=== PATIENT | male | born 1945 | race Caucasian/White ===

== ENCOUNTER 2016-11-01 02:56 | Inpatient (IN) | payer OTHER ==
--- NOTE | 2016-11-01 03:07 | PDOC ---
History of Present Illness - General Stated Complaint: FEVER/PALPITATIONS Time Seen by Provider: 11/01/16 02:59 History Source: Patient, Family Exam Limitations: No Limitations - History of Present Illness Initial Comments: 11/01/16 03:46 Patient is a 71 year old male with history significant for pancreatic cancer on chemotherapy s/p biliary stent placement 4 days ago BIBA in SVT with an elevated temperature. Patient has been complaining of worsening right sided abdominal pain since his stent placement and at 2 this morning was found by his in the bathroom, weak and minimally responsive. Patient's endorses a fever of 103. Patient endorses fever, chills, abdominal pain and weakness; denies chest pain, SOB, nausea and vomiting. Last chemo was three weeks ago. Patient reports no prior history of heart problems. Patient received 6mg + 12mg adenosine by EMS. PCP: Cristy Oncologist: Dr. Etienne ([facility]) Surgeon: Dr. Jacinto Whelan ([facility]) Past History - Past Medical History Allergies/Adverse Reactions: Allergies Allergy/AdvReac Type Severity Reaction Status Date / Time No Known Allergies Allergy Verified 11/01/16 03:06 Home Medications: Ambulatory Orders Atorvastatin Ca [Lipitor] 20 mg PO HS 02/25/15 Lisinopril 20 mg PO BID 02/25/15 Docusate Sodium [Colace -] 100 mg PO DAILY 11/01/16 Mv-Mn/Iron/FA/Herbal Cmplx#190 [Vitamin D3 Complete Caplet] 1 each PO DAILY Rivaroxaban [Xarelto -] 20 mg PO HS 11/01/16 Sennosides [Senna] 8.6 mg PO DAILY 11/01/16 Tamsulosin HCl [Flomax] 0.4 mg PO HS 11/01/16 Atorvastatin Ca [Lipitor] 20 mg PO HS tablet 11/07/16 Rivaroxaban [Xarelto -] 20 mg PO HS tablet 11/07/16 HTN: Yes Hypercholesterolemia: Yes - Suicide/Smoking/Psychosocial Hx Smoking History: Former smoker Have you smoked in the past 12 months: No If you are a former smoker, when did you quit?: 5 YRS Hx Alcohol Use: No Drug/Substance Use Hx: No Substance Use Type: None Review of Systems - Review of Systems Able to Perform ROS?: Yes Comments:: GEN: Endorses fever, chills, malaise, weakness; Denies recent illness HEENTM: Denies sore throat, neck pain, changes in vision, changes in hearing, ear pain, tinnitus Respiratory: Denies cough, wheezing, shortness of breath Cardiac: Endorses a "racing heart", diaphoresis; Denies chest pain, palpitations , lightheadedness ABD/GI: Endorses RUQ abdominal pain, constipation; Denies nausea, vomiting, diarrhea : Denies dysuria, burning on urination, increased frequency of urination Musculoskeletal: Denies pain and swelling of muscles and joints Integumentary: Denies rashes, bruises Neurological: Denies WEEKS, dizziness, loss of consciousness, tingling, numbness Hematologic/Lymphatic: Denies anemia, easy bleeding, history of blood clots. All Other Systems Reviewed and Negative Is the patient limited Jordanian proficient: No *Physical Exam - Physical Exam Comments: GENERAL: AAOx4, nourished, generally slow and weak appearing HEAD: NCAT EYES: PERRLA, EOMI, sclera anicteric, conjunctiva clear ENT: Auricles normal inspection, hearing grossly normal, nares patent, no nasal discharge, no congestion, oropharynx clear without exudates, MMM NECK: supple, normal ROM, no LAD, no JVD, no masses RESP: speaking in weak partial sentences, poor respiratory effort, lungs CTAB, symmetrical chest expansion, no respiratory distress HEART: Tachycardic, RR, normal S1-S2, no MRG, peripheral pulses normal and equal bilaterally ABDOMEN: soft, ttp RUQ/RLQ/epigastric, nlBSx4, non-distended, no guarding, no rebound, no masses EXTREMITIES: normal inspection, moving all extremities, full ROM, strength 4/5, sensation grossly intact, no edema NEUROLOGICAL: CN II-XII grossly intact, slowed speech/response, unable to assess gait, no focal sensorimotor deficits SKIN: warm, moist, normal turgor, no rashes or lesions noted. ED Treatment Course - LABORATORY CBC & Chemistry Diagram: 11/06/16 06:30 11/06/16 06:30 Medical Decision Making - Medical Decision Making 71yo male with pancreatic cancer on chemotherapy and post stenting 4 days ago presenting with abdominal pain, svt, fever and general weakness. Ddx includes but is not limited to progression of cancer, surgical complications , infection, paroxysmal svt, acs Patient had T of 100.1 and HR of 135 in ED Evalute with standard bloodwork, lipase, cardiac enzymes, CXR, UA Admit for further workup 11/01/16 04:17 CBC WBC 4.8 K/mm3 (4.0-10.0) D 11/01/16 03:36 RBC 4.76 M/mm3 (4.00-5.60) D 11/01/16 03:36 Hgb 14.2 GM/dL (11.7-16.9) D 11/01/16 03:36 Hct 42.3 % (35.4-49) D 11/01/16 03:36 MCV 88.7 fl (80-96) 11/01/16 03:36 MCH 29.7 pg (25.7-33.7) D 11/01/16 03:36 MCHC 33.5 g/dl (32.0-35.9) 11/01/16 03:36 RDW 15.5 % (11.9-15.9) D 11/01/16 03:36 Plt Count 194 K/MM3 (134-434) D 11/01/16 03:36 MPV 8.4 fl (7.5-11.1) 11/01/16 03:36 Neutrophils % 94.2 % (42.8-82.8) H D 11/01/16 03:36 Lymphocytes % 4.6 % (8-40) L D 11/01/16 03:36 Monocytes % 0.7 % (3.8-10.2) L D 11/01/16 03:36 Eosinophils % 0.4 % (0-4.5) D 11/01/16 03:36 Basophils % 0.1 % (0-2.0) 11/01/16 03:36 No leukocytosis in setting of chemo cannot rule out infection Blood glucose 329 Lactic acid 2.5 11/01/16 04:28 Laboratory Tests 11/01/16 03:36 PT with INR 29.40 H INR 2.62 H D PTT (Actin FS) 37.3 H Elevated CMP Sodium 131 mmol/L (136-145) L 11/01/16 03:36 Potassium 3.4 mmol/L (3.5-5.1) L 11/01/16 03:36 Chloride 92 mmol/L (98-107) L D 11/01/16 03:36 Carbon Dioxide 24 mmol/L (21-32) 11/01/16 03:36 Anion Gap 15 (8-16) 11/01/16 03:36 BUN 16 mg/dL (7-18) 11/01/16 03:36 Creatinine 1.1 mg/dL (0.7-1.3) D 11/01/16 03:36 Creat Clearance w eGFR > 60 (>60) 11/01/16 03:36 Random Glucose 359 mg/dL (74-106) H* D 11/01/16 03:36 Lactic Acid 2.5 mmol/L (0.4-2.0) H* 11/01/16 03:36 Calcium 8.6 mg/dL (8.5-10.1) 11/01/16 03:36 Magnesium 1.6 mg/dL (1.8-2.4) L 11/01/16 03:36 Total Bilirubin 3.4 mg/dL (0.2-1.0) H D 11/01/16 03:36 AST 77 U/L (15-37) H D 11/01/16 03:36 ALT 106 U/L (12-78) H D 11/01/16 03:36 Alkaline Phosphatase 380 U/L (45-117) H D 11/01/16 03:36 Creatine Kinase 55 IU/L (39-308) 11/01/16 03:36 Troponin I < 0.02 ng/ml (0.00-0.05) 11/01/16 03:36 Total Protein 6.6 g/dl (6.4-8.2) 11/01/16 03:36 Albumin 3.2 g/dl (3.4-5.0) L 11/01/16 03:36 Lipase 873 U/L (73-393) H 11/01/16 03:36 Troponin I reassuring for cardiac pathology Low K, Mg Elevated Lipase and LFTs Elevated Alk Phos 11/01/16 04:38 Urine Test Results Urine Color Yellow 11/01/16 03:36 Urine Appearance Clear 11/01/16 03:36 Urine pH 6.0 (5.0-8.0) 11/01/16 03:36 Urine Protein Negative (NEGATIVE) 11/01/16 03:36 Urine Glucose (UA) 3+ (NEGATIVE) H 11/01/16 03:36 Urine Ketones Trace (NEGATIVE) H 11/01/16 03:36 Urine Blood 1+ (NEGATIVE) H 11/01/16 03:36 Urine Nitrite Negative (NEGATIVE) 11/01/16 03:36 Urine Bilirubin Negative (NEGATIVE) 11/01/16 03:36 negative for UTI 11/01/16 05:[address] Power who agreed to have patient admitted under his service *DC/Admit/Observation/Transfer Diagnosis at time of Disposition: Sepsis Qualifiers: Sepsis type: Escherichia coli Qualified Code(s): A41.51 - Sepsis due to Escherichia coli [E. coli] - Discharge Dispostion Disposition: HOME Admit: Yes - Referrals
[2016-11-01] MEDS ORDERED: SODIUM CHLORIDE 1,000 ML IV STA ×3 (03:35→07:36)
[2016-11-01 03:45] LABS: BASOPHIL 0.1 % (0-2.0); EOSINOPHIL 0.4 % (0-4.5); MCH 29.7 pg (25.7-33.7); MCHC 33.5 g/dl (32.0-35.9); MEAN CELL VOLUME 88.7 fl (80-96); MEAN PLT VOLUME 8.4 fl (7.5-11.1); NEUTROPHILS 94.2 % (42.8-82.8); PLATELET COUNT 194 K/MM3 (134-434); RDW 15.5 % (11.9-15.9); WHITE BLOOD COUNT 4.8 K/mm3 (4.0-10.0)
[2016-11-01 03:51] LABS: URINE APPEARANCE CLEAR; URINE BILIRUBIN NEGATIVE (NEGATIVE); URINE BLOOD 1+ (NEGATIVE); URINE COLOR YELLOW; URINE GLUCOSE (UA) 3+ (NEGATIVE); URINE KETONE TRACE (NEGATIVE); URINE LEUK ESTERASE NEGATIVE (NEGATIVE); URINE NITRITE NEGATIVE (NEGATIVE); URINE PROTEIN NEGATIVE (NEGATIVE); URINE UROBILINOGEN NEGATIVE mg/dL (0.2-1.0)
[2016-11-01] MEDS ORDERED: ACETAMINOPHEN 1000 MG/100 ML VIAL (NON FORMULARY) IVPB ONE (03:54)
[2016-11-01] MEDS ORDERED: ACETAMINOPHEN INJECTION 100 ML IVPB ONE (03:54)
[2016-11-01 03:59] LABS: INR 2.62 (0.82-1.09); PROTHROMBIN TIME (PATIENT) 29.4 SEC (9.98-11.88)
[2016-11-01 04:01] LABS: ACTIVATED PTT 37.3 SECONDS (26.9-34.4)
[2016-11-01] MEDS ORDERED: PIPERACILLIN/TAZOB 3.375 GM 3.375 GM in DEXTROSE 5%-WATER - 50 ML IVPB ONE (04:01)
[2016-11-01] MEDS ORDERED: VANCOMYCIN 1,000 MG in DEXTROSE 5%-WATER - 250 ML IVPB ONE (04:02)
[2016-11-01 04:09] LABS: ALBUMIN 3.2 g/dl (3.4-5.0); ALK PHOS 380 U/L (45-117); ANION GAP 15 (8-16); BILIRUBIN,TOTAL 3.4 mg/dL (0.2-1.0); CALCIUM 8.6 mg/dL (8.5-10.1); CO2 24 mmol/L (21-32); CREATININE 1.1 mg/dL (0.7-1.3); SGOT/AST 77 U/L (15-37); SGPT/ALT 106 U/L (12-78); TOT PROT 6.6 g/dl (6.4-8.2)
[2016-11-01 04:16] LABS: GLUCOSE,RANDOM 359 mg/dL (74-106)
[2016-11-01 04:22] LABS: CPK 55 IU/L (39-308); TROPONIN I < 0.02 ng/ml (0.00-0.05)
[2016-11-01] MEDS ORDERED: VANCOMYCIN 1 GRAM (PRE-DOCKED) 250 ML IVPB ONE (04:23)
[2016-11-01] MEDS ORDERED: PIPERACILLIN/TAZOB 3.375 GM 50 ML IVPB ONE (04:23)
[2016-11-01] MEDS ORDERED: MAGNESIUM SULF 50% (8.12 MEQ/2 ML-1 GM VIAL) ONE (04:37)
[2016-11-01 04:41] LABS: URINE MUCUS RARE; URINE RBC 1 /hpf (0-3); URINE WBC <1 /hpf (3-5)
[2016-11-01] MEDS ORDERED: MAGNESIUM SULF 50% (8.12 MEQ/2 ML-1 GM VIAL) IVPB ONE (04:43)
[2016-11-01] MEDS ORDERED: morphine CARPU-JECT 4 MG/1 ML DISP.SYRIN IVPUSH ONE (05:29)
[2016-11-01] MEDS ORDERED: morphine CARPU-JECT 4 MG/1 ML DISP.SYRIN ONE (05:33)
[2016-11-01 09:45] VITALS: BMI 28.2
[2016-11-01] MEDS ORDERED: VANCOMYCIN 1,000 MG in DEXTROSE 5%-WATER - 250 ML IVPB SCH (10:00)
[2016-11-01] MEDS ORDERED: FLU VACCINE QUAD 60 MCG/0.5 ML (MDV 17-18) IM ONE (11:00)
[2016-11-01] MEDS ORDERED: SODIUM CHLORIDE 500 ML IV STA (12:31)
--- NOTE | 2016-11-01 12:31 | CONSULT ---
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 Patient's medical oncologist is Dr. Etienne at [facility]. He was diagnosed with biopsy confirmed pancreatic Ca in early 2015. He was not a candidate for pancreaticoduodenectomy ([facility]) due to locally advanced disease. Gastric bypass with cholecystectomy was performed instead, and he as been receiving adjuvant chemotherapy [id number] since April 2015. His current regiment is 5-FU and leucovorin, but his oncologist is considering to change his treatment due to recent worsening of his LFTs. On 10/28, Dr. Jacinto Khoury at [facility] ([facility] location) performed ERCP that revealed biliary obstruction 2/2 to mass with sphincterotomy and bare metal biliary wall stent placement. He was discharged home on Sunday 10/29. Post-procedural T bilirubin was 2.8. Since discharge, Mr. Castelan has had progressively worsening right-sided abdominal pain over the weekend. Yesterday, his reports that he was lethargic and found to have a fever of around 103F. He denies any chest pain, chest pressure, or SOB. No nausea or vomiting. No recent sick contacts. - History Source History Provided By: Patient, Medical Record Limitations to Obtaining History: No Limitations - Past Medical History Cardio/Vascular: Yes: HTN, Hyperlipdemia Gastrointestinal: Yes: Hemorrhoids Renal/: Yes: Cancer Heme/Onc: Yes: Current Chemotherapy - Past Surgical History Past Surgical History: Yes: Bypass, Cholecystectomy, Colonoscopy - Alcohol/Substance Use Hx Alcohol Use: No History of Substance Use: reports: None - Smoking History Smoking history: Former smoker Have you smoked in the past 12 months: No If you are a former smoker, when did you quit?: 5 YRS - Social History Usual Living Arrangement: With Spouse ADL: Independent History of Recent Travel: No Home Medications - Allergies Allergies/Adverse Reactions: Allergies Allergy/AdvReac Type Severity Reaction Status Date / Time No Known Allergies Allergy Verified 11/01/16 03:06 - Home Medications Home Medications: Ambulatory Orders Atorvastatin Ca [Lipitor] 20 mg PO HS 02/25/15 Lisinopril 20 mg PO BID 02/25/15 Docusate Sodium [Colace -] 100 mg PO DAILY 11/01/16 Mv-Mn/Iron/FA/Herbal Cmplx#190 [Vitamin D3 Complete Caplet] 1 each PO DAILY Rivaroxaban [Xarelto -] 20 mg PO HS 11/01/16 Sennosides [Senna] 8.6 mg PO DAILY 11/01/16 Tamsulosin HCl [Flomax] 0.4 mg PO HS 11/01/16 Family Disease History - Family Disease History Family Disease History: Other: Father (prostate carcinoma at 74) Physical Exam Vital Signs: Vital Signs Temperature 98.7 F 11/01/16 10:28 Pulse Rate 99 H 11/01/16 10:28 Respiratory Rate 22 11/01/16 10:28 Blood Pressure 119/61 11/01/16 11:58 O2 Sat by Pulse Oximetry (%) 100 11/01/16 09:00 Constitutional: Yes: Well Nourished, Calm Eyes: Yes: Conjunctiva Clear (anicteric sclera) HENT: Yes: WNL (oropharynx clear without exudates or erythema, moist mucous membranes) Cardiovascular: Yes: Tachycardia (regular rhythm, normal S1/S2) Respiratory: Yes: Diminished Gastrointestinal: Yes: Soft, Tenderness (RUQ>RLQ), Other (No distention, well healed midline vertical scar above umbilicus) Extremities: Yes: WNL Edema: No Edema: LLE: Trace, RLE: Trace Peripheral Pulses WNL: Yes Labs: 11/01/16 03:36 11/01/16 18:00 11/01/16 11/01/16 03:36 03:36 PT with INR 29.40 H INR 2.62 H D PTT (Actin FS) 37.3 H Sodium 131 L Potassium 3.4 L Chloride 92 L D Carbon Dioxide 24 Anion Gap 15 BUN 16 Creatinine 1.1 D Lactic Acid Calcium 8.6 Magnesium Total Bilirubin 3.4 H D AST 77 H D ALT 106 H D Alkaline Phosphatase 380 H D Total Protein 6.6 Albumin 3.2 L Creatine Kinase 55 IU/L (39-308) 11/01/16 03:36 Troponin I < 0.02 ng/ml (0.00-0.05) 11/01/16 03:36 11/01/16 11/01/16 11/01/16 11/01/16 11/01/16 03:36 03:36 03:36 05:30 13:15 Lactic Acid 2.5 H* 4.1 H* 1.5 Calcium 8.6 Magnesium 1.6 L Lipase 873 H Urine Color Yellow 11/01/16 03:36 Urine Appearance Clear 11/01/16 03:36 Urine pH 6.0 (5.0-8.0) 11/01/16 03:36 Ur Specific [place] 1.015 (1.005-1.025) 11/01/16 03:36 Urine Protein Negative (NEGATIVE) 11/01/16 03:36 Urine Glucose (UA) 3+ (NEGATIVE) H 11/01/16 03:36 Urine Ketones Trace (NEGATIVE) H 11/01/16 03:36 Urine Blood 1+ (NEGATIVE) H 11/01/16 03:36 Urine Nitrite Negative (NEGATIVE) 11/01/16 03:36 Urine Bilirubin Negative (NEGATIVE) 11/01/16 03:36 Urine RBC 1 /hpf (0-3) 11/01/16 03:36 Urine WBC <1 /hpf (3-5) 11/01/16 03:36 Urine Mucus Rare 11/01/16 03:36 Microbiology 11/01/16 03:36 Blood - Peripheral Venous Blood Culture - Preliminary Pending Organism --> GN bacilli 11/01/16 03:36 Blood - Peripheral Venous Blood Culture - Preliminary Pending Organism --> GN bacilli Urine cultures pending Imaging - Results Chest X-ray: Report Reviewed, Image Reviewed (Since 02/25/2015, there are new increased markings at the left base suspicious for an early infiltrate. There is a new right jugular line with its tip at the junction the SVC and right atrium. There is a prominent mediastinum. There is some minimal atelectatic change at the left base. The right lung is clear. Correlation recommended. Impression: New left base changes and new right line. Reported By: Yoseph Donovan MD 11/01/16 0834) Cat Scan: Report Reviewed, Image Reviewed (Abd/pelvis CT w/o contrast: The study is markedly limited without the use of any contrast material. Atelectatic changes are seen at both lung bases, left greater than right. There is a biliary Wallstent in place which is widely patent, as evidenced by air throughout the biliary tree. There are multiple surgical clips identified in the region of the pancreatic head which has a bulky appearance. A discrete mass cannot be identified, however. Mildly enlarged peripancreatic lymph nodes are present. There are also moderately enlarged retroperitoneal nodes, predominantly within the left para-aortic chain. The largest of these nodes measures 2.7 cm. The liver is normal in size and texture with no intrahepatic masses present. The spleen, adrenal glands and kidneys demonstrate no significant abnormalities. There is a 4.4 cm cyst extending from the upper pole the right kidney. There is a tubular structure within the body of the stomach. This has the appearance of a catheter , however, its origin is unclear. Clinical correlation is advised. There is no evidence of pneumoperitoneum, bowel obstruction or intra-abdominal abscess. There is an IVC filter noted within the infrarenal cava. Examination of the pelvis demonstrates no evidence of pelvic masses, fluid collections or lymphadenopathy. The prostate gland is markedly enlarged measuring 6.5 x 5.3 x 6.2 cm. There is no evidence of bony metastases or acute abnormalities. IMPRESSION: 1. Patent biliary Wallstent with pneumobilia. 2. Bulky appearance of the peripancreatic region with no discrete mass present. There is peripancreatic and left retroperitoneal lymphadenopathy.) Assessment/Plan 71yo man with metastatic pancreatic cancer (on chemotherapy) s/p ERCP/biliary stent placement 4days ago for obstruction who presents with sepsis and GN bacteremia possibly 2/2 PNA versus biliary tract source. Medical oncologist at [facility] Dr. Etienne is aware of his ICU admission. [facility] records obtained from her office and added to pt chart. Contacted Insights Strategist, Dr. Khoury, at [facility] for additional collateral information about recent procedure. Discussed case with Dr. De La Torre. #GI -Dr. De La Torre consulted -HIDA scan tomorrow to assess stent patency -NPO after midnight #ID -ID consulted -Abx per ID (Zosyn and Vanc) -Trend lactic acid -f/u Blood and urine cultures #Pulm -O2 therapy as needed #Renal -Strict I&Os #FEN -Agressive IVF, s/p 3.5L NS, currently NS @ 125cc/hr -Repleted Mg with 2g IVPB, K with 40mEq PO KCl -NPO #PPX -DVT ppx bilateral SCDs, early ambulation #Dispo: Continue ICU management d/w attending Dr. Parmjit Pendleton MD PGY-1 Visit type - Emergency Visit Emergency Visit: No - New Patient This patient is new to me today: Yes Date on this admission: 11/01/16 - Critical Care Critical Care patient: Yes Total Critical Care Time (in minutes): 40 Critical Care Statement: The care of this patient involved high complexity decision making to prevent further life threatening deterioration of the patient 's condition and/or to evaluate & treat vital organ system(s) failure or risk of failure.
[2016-11-01] MEDS ORDERED: NAPH,MB-DB/K PH,MBDB POWDER PACKET PO ONE (12:38)
[2016-11-01] MEDS: PIPERACILLIN/TAZOB 3.375 GM 50 ML IVPB SCH ×2 (13:27→17:45)
--- NOTE | 2016-11-01 13:43 | PN ---
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
--- NOTE | 2016-11-01 14:04 | PN ---
Teaching Attending Note Name of Resident: Cristina Pendleton ATTENDING PHYSICIAN STATEMENT I saw and evaluated the patient. I reviewed the resident's note and discussed the case with the resident. I agree with the resident's findings and plan as documented. SUBJECTIVE: 71 M, known pancreatic cancer managed at [facility]. According to his has been receiving chemotherapy since 03/2015 almost every 2 weeks. Last Chemo was 3 weeks ago today. They were told that he does not seem to be responding to the Chemo by his oncologist. S/P Biliary stent placement on Monday and was discharged on Monday. Progressively worsening right sided abdominal pain. No CP or SOB. No travel history or sick contacts. Intake & Output 10/29/16 10/30/16 10/31/16 11/01/16 23:59 23:59 23:59 23:59 Intake Total 2550 Output Total 400 Balance 2150 Weight 175 lb 0.752 oz Last Vital Signs Temp Pulse Resp BP Pulse Ox 98.7 F 99 H 22 119/61 100 11/01/16 10:28 11/01/16 10:28 11/01/16 10:28 11/01/16 11:58 11/01/16 09:00 Active Medications Piperacillin Sod/Tazobactam Sod (Zosyn 3.375gm Ivpb (Pre-Docked)) 50 mls @ 100 mls/hr IVPB Q8H-IV GALO PRN Reason: Protocol Last Admin: 11/01/16 13:27 Dose: 100 mls/hr Vancomycin HCl (Vancomycin (Pre-Docked)) 250 mls @ 200 mls/hr IVPB BID@0400, 1600 GALO Constitutional: Yes: Awake and alert, Mildly uncomfortable due to pain Eyes: Yes: Conjunctiva Clear HENT: Yes: WNL Neck: Yes: Supple, Trachea Midline Cardiovascular: Yes: Regular Rate and Rhythm Respiratory: Yes: Few scattered rhonchi Gastrointestinal: Yes: Soft Edema: LLE: 1+, RLE: 1+ Neurological: Yes: Alert Psychiatric: Yes: Alert Laboratory Results - last 24 hr 11/01/16 11/01/16 11/01/16 03:36 03:36 03:36 WBC 4.8 D RBC 4.76 D Hgb 14.2 D Hct 42.3 D MCV 88.7 MCH 29.7 D MCHC 33.5 RDW 15.5 D Plt Count 194 D MPV 8.4 Neutrophils % 94.2 H D Lymphocytes % 4.6 L D Monocytes % 0.7 L D Eosinophils % 0.4 D Basophils % 0.1 PT with INR INR PTT (Actin FS) Sodium Potassium Chloride Carbon Dioxide Anion Gap BUN Creatinine Creat Clearance w eGFR Random Glucose Lactic Acid Calcium Magnesium 1.6 L Total Bilirubin AST ALT Alkaline Phosphatase Creatine Kinase Troponin I Total Protein Albumin Lipase Urine Color Yellow Urine Appearance Clear Urine pH 6.0 Ur Specific [place] 1.015 Urine Protein Negative Urine Glucose (UA) 3+ H Urine Ketones Trace H Urine Blood 1+ H Urine Nitrite Negative Urine Bilirubin Negative Urine Urobilinogen Negative Urine RBC 1 Urine WBC <1 Urine Mucus Rare 11/01/16 11/01/16 11/01/16 03:36 03:36 03:36 WBC RBC Hgb Hct MCV MCH MCHC RDW Plt Count MPV Neutrophils % Lymphocytes % Monocytes % Eosinophils % Basophils % PT with INR 29.40 H INR 2.62 H D PTT (Actin FS) 37.3 H Sodium 131 L Potassium 3.4 L Chloride 92 L D Carbon Dioxide 24 Anion Gap 15 BUN 16 Creatinine 1.1 D Creat Clearance w eGFR > 60 Random Glucose 359 H* D Lactic Acid 2.5 H* Calcium 8.6 Magnesium Total Bilirubin 3.4 H D AST 77 H D ALT 106 H D Alkaline Phosphatase 380 H D Creatine Kinase Troponin I Total Protein 6.6 Albumin 3.2 L Lipase Urine Color Urine Appearance Urine pH Ur Specific [place] Urine Protein Urine Glucose (UA) Urine Ketones Urine Blood Urine Nitrite Urine Bilirubin Urine Urobilinogen Urine RBC Urine WBC Urine Mucus 11/01/16 11/01/16 11/01/16 03:36 03:36 05:30 WBC RBC Hgb Hct MCV MCH MCHC RDW Plt Count MPV Neutrophils % Lymphocytes % Monocytes % Eosinophils % Basophils % PT with INR INR PTT (Actin FS) Sodium Potassium Chloride Carbon Dioxide Anion Gap BUN Creatinine Creat Clearance w eGFR Random Glucose Lactic Acid 4.1 H* Calcium Magnesium Total Bilirubin AST ALT Alkaline Phosphatase Creatine Kinase 55 Troponin I < 0.02 Total Protein Albumin Lipase 873 H Urine Color Urine Appearance Urine pH Ur Specific [place] Urine Protein Urine Glucose (UA) Urine Ketones Urine Blood Urine Nitrite Urine Bilirubin Urine Urobilinogen Urine RBC Urine WBC Urine Mucus 11/01/16 13:15 WBC RBC Hgb Hct MCV MCH MCHC RDW Plt Count MPV Neutrophils % Lymphocytes % Monocytes % Eosinophils % Basophils % PT with INR INR PTT (Actin FS) Sodium Potassium Chloride Carbon Dioxide Anion Gap BUN Creatinine Creat Clearance w eGFR Random Glucose Lactic Acid 1.5 Calcium Magnesium Total Bilirubin AST ALT Alkaline Phosphatase Creatine Kinase Troponin I Total Protein Albumin Lipase Urine Color Urine Appearance Urine pH Ur Specific [place] Urine Protein Urine Glucose (UA) Urine Ketones Urine Blood Urine Nitrite Urine Bilirubin Urine Urobilinogen Urine RBC Urine WBC Urine Mucus IMP: Sepsis due to suspected GI versus Pulmonary source Pancreatic cancer PLAN: Aggressive IVF O2 as needed Follow lactic acid Strict I & O VTE prophylaxis ABX per ID Need to get more info from his oncologist ICU monitoring Dr Parnell Critical care time spent in reviewing chart, evaluating patient and formulating plan - 35 minutes.
[2016-11-01] MEDS ORDERED: SODIUM CHLORIDE 1,000 ML IV SCH (14:30)
[2016-11-01] MEDS ORDERED: POTASSIUM CHLORIDE 20 MEQ PREMIX IVPB 100 ML IVPB ONE (14:32)
[2016-11-01] MEDS ORDERED: POTASSIUM CHLORIDE ORAL LIQUID 20 MEQ/15 ML PO ONE (15:23)
[2016-11-01] MEDS: VANCOMYCIN 1 GRAM (PRE-DOCKED) 250 ML IVPB SCH (16:12)
--- NOTE | 2016-11-01 16:40 | CONS ---
INFECTIOUS DISEASE CONSULTATION DATE OF CONSULTATION: 11/01/2016 HISTORY OF PRESENT ILLNESS: The patient is a 71-year-old male with a history of pancreatic cancer status post chemotherapy 3 weeks prior to admission, history of biliary tract obstruction status post biliary stent October 28, 2016, evaluated for sepsis. The patient had undergone a placement of a biliary stent on Monday, October 28, 2016, at [facility]. Patient states he did well for the next 24-48 hours. He began to develop worsening of his chronic abdominal pain, associated with increased weakness and lethargy. He was evaluated in the emergency room where the patient was ill appearing. He was febrile to 104.8 and hypotensive. He required multiple liters of saline. He was admitted to the intensive care unit with rapid heart rate. He was given adenosine with improvement in his heart rate. Cultures were obtained, and he was empirically treated with vancomycin and Zosyn for possible biliary sepsis. CAT scan of the abdomen and pelvis shows a patent biliary stent with intraabdominal lymphadenopathy. PAST MEDICAL HISTORY: Patient has a history of pancreatic cancer diagnosed in February of 2015. As per , he initially was a candidate for surgery. However, was deemed to have advanced disease. He has been treated with chemotherapy every 3 weeks. He had been on Gemzar and Taxol. However, Taxol was held because of peripheral neuropathy. He denies any history of leukopenia or neutropenic sepsis. Past medical history also includes hypertension and hyperlipidemia. PAST SURGICAL HISTORY: Status post IVC filter, a history of port placement. ALLERGIES: No known allergies. MEDICATIONS: Include Lipitor and lisinopril. SOCIAL HISTORY: Lives at home with his . He is a former smoker. SYSTEMS REVIEW: Neurologic: No loss of consciousness, seizure activity, or focal weakness. Cardiac: Negative chest pain or palpitations. Respiratory: Negative cough or sputum production. Gastrointestinal: Negative vomiting or diarrhea. Genitourinary: Negative for urinary tract infection. LABORATORY DATA: White count 4.8, absolute neutrophil count 4500, hematocrit 42.3, platelet count 194. BUN 16, creatinine 1.1. Glucose 359. Lactic acid 2.5. Lipase 873, total bilirubin 3.4, alkaline phosphatase 380, AST 77, ALT 106. PHYSICAL EXAMINATION: General: He is awake and alert. He is in moderate distress secondary to abdominal pain. Vital Signs: Temperature 98.8, T-max 104.8; blood pressure 116/83; pulse 99, regular; respirations 20 per minute. HEENT: Sclerae are icteric. Patient is mildly jaundiced. Dry mucous membranes. Heart: Sounds S1, S2. No murmur. Lungs: Crepitations at the left base. No rhonchi or wheezing. Abdomen: Soft. There is mild tenderness to palpation, right upper quadrant. No mass, rebound, or rigidity. Port Site, Right Chest: No erythema or tenderness. Extremities: Edema 1+. IMPRESSION: 1. Sepsis, possibly biliary tract source. 2. Pancreatic cancer status post recent chemotherapy. 3. Status post biliary stent. 4. Status post supraventricular tachycardia. 5. Dehydration. 6. Azotemia. Patient with clinical sepsis syndrome with high-grade fever, tachycardia, hypotension, likely biliary tract source although CAT scan shows patent stent. No evidence to suggest port infection, pneumonia, or sepsis secondary to UTI. Pending sepsis workup, empiric antibiotic coverage with vancomycin and Zosyn. Monitor white blood cell count. Continue hemodynamic support. ICU monitoring. We will follow. Thank you for the kind referral. CRITICAL CARE TIME SPENT: Thirty-five minutes. MAXWELL GOLDSTEIN M.D. [id number]
[2016-11-01 19:42] LABS: ALBUMIN 2.4 g/dl (3.4-5.0); ANION GAP 7 (8-16); BILIRUBIN,TOTAL 1.6 mg/dL (0.2-1.0); CALCIUM 7.9 mg/dL (8.5-10.1); CO2 25 mmol/L (21-32); CREATININE 0.7 mg/dL (0.7-1.3); GLUCOSE,RANDOM 174 mg/dL (74-106); SGOT/AST 50 U/L (15-37); SGPT/ALT 82 U/L (12-78); TOT PROT 5.3 g/dl (6.4-8.2)
[2016-11-01 19:43] LABS: ALK PHOS 246 U/L (45-117)
--- NOTE | 2016-11-01 21:01 | EKG ---
Test Reason : Blood Pressure : / mmHG Vent. Rate : 134 BPM Atrial Rate : 136 BPM P-R Int : 000 ms QRS Dur : 140 ms QT Int : 388 ms P-R-T Axes : 000 055 028 degrees QTc Int : 579 ms SINUS TACHYCARDIA VS REENTRANT TACHYCARDIA WITH VA CONDUCTION CRBBB HIGH ST SEGMENT TAKE OFF IN V4-V6, CURRENT OF INJURY CANNOT BE EXCLUDED ABNORMAL ECG WHEN COMPARED WITH ECG OF 25-FEB-2015 15:16, VENT. RATE HAS INCREASED BY 61 BPM FOLLOW TRACING IS RECOMMENDED Confirmed by NICKY ZAZUETA MD ([id number]) on 11/01/2016 9:01:46 PM Referred By: Confirmed By:NICKY ZAZUETA MD
--- NOTE | 2016-11-01 21:07 | HOSP ---
Subjective - Review of Symptoms Events since last encounter: Blood cultures + for 4/4 GNRs, pending sensitivities/further speciation. Patient currently receiving IV vanc/zosyn. Likely enteric source of infection given recent ERCP and stent placement. Must consider acute cholecystitis, as well as cholangitis vs. biliary/duodenal perforation, although less likely given clinical picture. Consider adding flagyl for further anaerobic coverage, if zosyn not sufficient. Will defer to ID team on adjustment of current abx course. Pt going for HIDA scan in morning. Physical Examination Vital Signs: Vital Signs Temperature 98.6 F 11/01/16 14:00 Pulse Rate 86 11/01/16 19:04 Respiratory Rate 20 11/01/16 19:04 Blood Pressure 125/77 11/01/16 19:04 O2 Sat by Pulse Oximetry (%) 100 11/01/16 09:00 Labs: CBC, BMP 11/01/16 18:00 Visit type - Emergency Visit Emergency Visit: No - New Patient This patient is new to me today: Yes Date on this admission: 11/01/16 - Critical Care Critical Care patient: Yes Total Critical Care Time (in minutes): 10
--- NOTE | 2016-11-01 21:51 | HP ---
Admitting History and Physical - Primary Care Physician PCP: Freedom Muniz - Admission Chief Complaint: change in mentalstatus. 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 Post op was maintained on chemotherapy which was administered at [facility] [place]. Last chemo was three weeks. A week ago he was referred to [facility] and underwent placement of a stent in the CBD. Prior to this was having RUQ pain which improved after placement of the stent.Last night around 1.30 AM went to the bathroom and became confused and was brought to ED and was found to have temp of 104.8 with 94% neutrophils, diagnosed to have sepsis and was treated with Vancomycin and Zosyn and imrpoved. He now feels much better and is afebrile. History Source: Patient Limitations to Obtaining History: No Limitations - Past Medical History Cardiovascular: Yes: HTN, Hyperlipdemia Gastrointestinal: Yes: Hemorrhoids Heme/Onc: Yes: Current Chemotherapy - Past Surgical History Past Surgical History: Yes: Bypass (gastrojejunostomy), Colonoscopy - Smoking History Smoking history: Former smoker Have you smoked in the past 12 months: No If you are a former smoker, when did you quit?: 5 YRS - Alcohol/Substance Use Hx Alcohol Use: No History of Substance Use: reports: None - Social History ADL: Independent History of Recent Travel: No Home Medications - Allergies Allergies/Adverse Reactions: Allergies Allergy/AdvReac Type Severity Reaction Status Date / Time No Known Allergies Allergy Verified 11/01/16 03:06 - Home Medications Home Medications: Ambulatory Orders Atorvastatin Ca [Lipitor] 20 mg PO HS 02/25/15 Lisinopril 20 mg PO BID 02/25/15 Docusate Sodium [Colace -] 100 mg PO DAILY 11/01/16 Mv-Mn/Iron/FA/Herbal Cmplx#190 [Vitamin D3 Complete Caplet] 1 each PO DAILY Rivaroxaban [Xarelto -] 20 mg PO HS 11/01/16 Sennosides [Senna] 8.6 mg PO DAILY 11/01/16 Tamsulosin HCl [Flomax] 0.4 mg PO HS 11/01/16 Family Disease History - Family Disease History Family Disease History: Other: Father (prostate carcinoma at 74) Review of Systems - Review of Systems Constitutional: reports: Chills, Fever Eyes: reports: No Symptoms HENT: reports: No Symptoms Neck: reports: No Symptoms Cardiovascular: reports: No Symptoms Respiratory: reports: No Symptoms Gastrointestinal: reports: Abdominal Pain (Had RUQ pain prior to oplacement of stent in CBD) Genitourinary: reports: No Symptoms Breasts: reports: No Symptoms Reported Musculoskeletal: reports: No Symptoms Integumentary: reports: No Symptoms Neurological: reports: No Symptoms Endocrine: reports: No Symptoms Hematology/Lymphatic: reports: No Symptoms Psychiatric: reports: No Symptoms Physical Examination Vital Signs: Vital Signs Temperature 98.6 F 11/01/16 14:00 Pulse Rate 86 11/01/16 19:04 Respiratory Rate 20 11/01/16 19:04 Blood Pressure 125/77 11/01/16 19:04 O2 Sat by Pulse Oximetry (%) 100 11/01/16 09:00 Constitutional: Yes: Well Nourished, Calm Eyes: Yes: Conjunctiva Clear, EOM Intact HENT: Yes: WNL Neck: Yes: Supple Cardiovascular: Yes: Regular Rate and Rhythm, S1, S2 Respiratory: Yes: Regular, CTA Bilaterally Gastrointestinal: Yes: Normal Bowel Sounds, Soft Renal/: Yes: WNL Breast(s): Yes: WNL Extremities: Yes: WNL Edema: No Peripheral Pulses WNL: Yes Integumentary: Yes: WNL Neurological: Yes: Alert, Oriented ...Motor Strength: WNL Psychiatric: Yes: Alert, Oriented Labs: CBC, BMP 11/01/16 18:00 Imaging - Results Chest X-ray: Report Reviewed Cat Scan: Report Reviewed EKG: Report Reviewed, Image Reviewed Problem List - Problems (1) Bacteremia Assessment/Plan: Gram negative bacteremia responding to Zosyn and Vancomycin Code(s): R78.81 - BACTEREMIA (2) HTN (hypertension) Code(s): I10 - ESSENTIAL (PRIMARY) HYPERTENSION Qualifiers: Hypertension type: secondary to endocrine disorders Qualified Code(s ): I15.2 - Hypertension secondary to endocrine disorders (3) RBBB Assessment/Plan: Continue to monitor Code(s): I45.10 - UNSPECIFIED RIGHT BUNDLE-BRANCH BLOCK (4) Adenocarcinoma of pancreas Assessment/Plan: No distant metastasis at present except for enlarged lymph nodes Code(s): C25.9 - MALIGNANT NEOPLASM OF PANCREAS, UNSPECIFIED Assessment/Plan Continue present antibiptics pending isolation of the organism and pending sensitivities. Also will follow LFTs to ascertain any blockage of the stent. Will require HIDA scan to determine patency of the stent in CBD
[2016-11-02] MEDS: TAMSULOSIN HCL 0.4 MG CAP.ER.24H (FP) PO SCH ×3 (01:22→21:53)
[2016-11-02] MEDS: PIPERACILLIN/TAZOB 3.375 GM 50 ML IVPB SCH ×2 (03:37→12:45)
[2016-11-02] MEDS ORDERED: PROPOFOL 100 ML ONE (04:17)
[2016-11-02] MEDS: VANCOMYCIN 1 GRAM (PRE-DOCKED) 250 ML IVPB SCH (04:37)
[2016-11-02 06:59] LABS: BASOPHIL 0.5 % (0-2.0); EOSINOPHIL 1.4 % (0-4.5); MCHC 34.4 g/dl (32.0-35.9); MEAN CELL VOLUME 87.4 fl (80-96); NEUTROPHILS 79.4 % (42.8-82.8); PLATELET COUNT 216 K/MM3 (134-434); RDW 15.2 % (11.9-15.9); WHITE BLOOD COUNT 9.1 K/mm3 (4.0-10.0)
[2016-11-02 07:32] LABS: ALBUMIN 2.7 g/dl (3.4-5.0); ALK PHOS 278 U/L (45-117); ANION GAP 10 (8-16); CALCIUM 8.4 mg/dL (8.5-10.1); CO2 27 mmol/L (21-32); CREATININE 0.6 mg/dL (0.7-1.3); GLUCOSE,RANDOM 129 mg/dL (74-106); PHOSPHOROUS 1.7 mg/dL (2.5-4.9); SGOT/AST 57 U/L (15-37); SGPT/ALT 84 U/L (12-78); TOT PROT 5.7 g/dl (6.4-8.2)
[2016-11-02 07:36] LABS: CPK 44 IU/L (39-308); TROPONIN I < 0.02 ng/ml (0.00-0.05)
[2016-11-02 07:43] LABS: INR 1.46 (0.82-1.09); PROTHROMBIN TIME (PATIENT) 16.2 SEC (9.98-11.88)
--- NOTE | 2016-11-02 10:33 | EKG ---
Test Reason : Blood Pressure : / mmHG Vent. Rate : 090 BPM Atrial Rate : 090 BPM P-R Int : 154 ms QRS Dur : 148 ms QT Int : 408 ms P-R-T Axes : 055 056 023 degrees QTc Int : 499 ms NORMAL SINUS RHYTHM POSSIBLE LEFT ATRIAL ENLARGEMENT RIGHT BUNDLE BRANCH BLOCK ABNORMAL ECG WHEN COMPARED WITH ECG OF 01-NOV-2016 03:09, SINUS RHYTHM HAS REPLACED WIDE QRS TACHYCARDIA VENT. RATE HAS DECREASED BY 44 BPM Confirmed by SANDRA GALLEGOS MD ([id number]) on 11/02/2016 10:32:56 AM Referred By: ASHER DRISCOLL DR Confirmed By:SANDRA GALLEGOS MD
[2016-11-02] MEDS ORDERED: IRON PO SCH (12:04)
[2016-11-02] MEDS ORDERED: SODIUM CHLORIDE 1,000 ML IV SCH (12:04)
[2016-11-02] MEDS ORDERED: MV MN PO SCH (12:04)
[2016-11-02] MEDS ORDERED: [UNRECOGNIZED DRUG - OTHER] PO SCH (12:04)
[2016-11-02] MEDS ORDERED: HERBAL CMPLX PO SCH (12:04)
[2016-11-02] MEDS: SODIUM CHLORIDE 1,000 ML IV SCH ×2 (12:41→12:58)
[2016-11-02] MEDS: SENNOSIDES 8.6MG TABLET (FP) PO SCH (12:55)
[2016-11-02] MEDS: DOCUSATE SODIUM 100 MG CAPSULE (FP) PO SCH (12:55)
[2016-11-02] MEDS: LISINOPRIL 10 MG TABLET (FP) PO SCH (12:55)
[2016-11-02] MEDS ORDERED: TAMSULOSIN HCL 0.4 MG CAP.ER.24H (FP) PO ONE (13:45)
[2016-11-02] MEDS ORDERED: MEROPENEM 500 MG VIAL (RESTRICTED TO ID) IVPB SCH (14:15)
--- NOTE | 2016-11-02 14:37 | CON.GI ---
Consult Consult Specialty:: gastroenterology Referred by:: Dr Lang - History of Present Illness History of Present Illness: The patient was seen in the ICU last night at 6pm. 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 He was admitted because of Sepsis. He received IV antibiotics and Iv fluids while in the ICU.He deniea abdominal pain, nausea and vomiting. - Past Medical History Cardio/Vascular: Yes: HTN, Hyperlipdemia Gastrointestinal: Yes: Hemorrhoids Renal/: Yes: Cancer - Past Surgical History Past Surgical History: Yes: Bypass, Cholecystectomy, Colonoscopy - Alcohol/Substance Use Hx Alcohol Use: No History of Substance Use: reports: None - Smoking History Smoking history: Former smoker Have you smoked in the past 12 months: No If you are a former smoker, when did you quit?: 5 YRS - Social History Usual Living Arrangement: With Spouse ADL: Independent History of Recent Travel: No Home Medications - Allergies Allergies/Adverse Reactions: Allergies Allergy/AdvReac Type Severity Reaction Status Date / Time No Known Allergies Allergy Verified 11/01/16 03:06 - Home Medications Home Medications: Ambulatory Orders Atorvastatin Ca [Lipitor] 20 mg PO HS 02/25/15 Lisinopril 20 mg PO BID 02/25/15 Docusate Sodium [Colace -] 100 mg PO DAILY 11/01/16 Mv-Mn/Iron/FA/Herbal Cmplx#190 [Vitamin D3 Complete Caplet] 1 each PO DAILY Rivaroxaban [Xarelto -] 20 mg PO HS 11/01/16 Sennosides [Senna] 8.6 mg PO DAILY 11/01/16 Tamsulosin HCl [Flomax] 0.4 mg PO HS 11/01/16 Family Disease History - Family Disease History Family Disease History: Other: Father (prostate carcinoma at 74) Review of Systems - Review of Systems Constitutional: reports: Fever HENT: denies: Difficult Swallowing Neck: denies: Decreased ROM Cardiovascular: denies: Chest Pain Respiratory: denies: Cough Gastrointestinal: denies: Abdominal Pain Physical Exam-GI Vital Signs: Vital Signs Temperature 99.4 F 11/02/16 06:00 Pulse Rate 84 11/02/16 08:00 Respiratory Rate 16 11/02/16 09:00 Blood Pressure 149/92 11/02/16 08:00 O2 Sat by Pulse Oximetry (%) 97 11/02/16 09:00 Constitutional: Yes: Well Nourished Neck: Yes: Trachea Midline Cardiovascular: Yes: Regular Rate and Rhythm Respiratory: Yes: CTA Bilaterally ...Palpate: Yes: Soft. No: Firm/Rigid, Guarding, Hepatomegaly, Mass, Pulsatile Mass Labs: CBC, BMP 11/02/16 05:15 11/02/16 05:15 INR, PTT INR 1.46 (0.82-1.09) H D 11/02/16 05:15 Problem List - Problems (1) Sepsis Assessment/Plan: etiology unclear, metallic stent is patent R> continue antibiotics serial LFTS advance diet Code(s): A41.9 - SEPSIS, UNSPECIFIED ORGANISM Qualifiers: Sepsis type: sepsis due to unspecified organism Qualified Code(s): A41.9 - Sepsis, unspecified organism
--- NOTE | 2016-11-02 15:38 | PN ---
Progress Note, Physician History of Present Illness: Temps down Mild epigastric/ RUQ abdominal pain No N/V Blood c/s GNR WBC 9.1 LFTs remain elevated - Current Medication List Current Medications: Active Medications Atorvastatin Calcium (Lipitor -) 20 mg PO HS [facility] Docusate Sodium (Colace -) 100 mg PO DAILY [facility] Last Admin: 11/02/16 12:55 Dose: 100 mg Sodium Chloride (Normal Saline -) 1,000 mls @ 125 mls/hr IV ASDIR GALO Last Admin: 11/02/16 12:58 Dose: 125 mls/hr Sodium Chloride (Normal Saline -) 1,000 mls @ 125 mls/hr IV ASDIR GALO Stop: 11/02/16 22:29 Last Admin: 11/02/16 12:58 Dose: 125 mls/hr Meropenem 500 mg/ Dextrose 100 mls @ 400 mls/hr IVPB Q8H-IV [facility] Lisinopril (Prinivil) 20 mg PO BID [facility] Last Admin: 11/02/16 12:55 Dose: 20 mg Rivaroxaban (Xarelto -) 20 mg PO [facility] Senna (Senna -) 1 tab PO DAILY [facility] Last Admin: 11/02/16 12:55 Dose: 1 tab Tamsulosin HCl (Flomax -) 0.4 mg PO DAILY@0830 [facility] Tamsulosin HCl (Flomax -) 0.4 mg PO [facility] - Objective Vital Signs: Vital Signs Temperature 97.8 F 11/02/16 15:26 Pulse Rate 98 H 11/02/16 15:26 Respiratory Rate 20 11/02/16 15:26 Blood Pressure 156/89 11/02/16 15:26 O2 Sat by Pulse Oximetry (%) 97 11/02/16 09:00 Constitutional: Yes: No Distress Eyes: Yes: Conjunctiva Clear Cardiovascular: Yes: Regular Rate and Rhythm, S1, S2 Respiratory: Yes: CTA Bilaterally Gastrointestinal: Yes: Normal Bowel Sounds, Soft Labs: CBC, BMP 11/02/16 05:15 11/02/16 05:15 INR, PTT INR 1.46 (0.82-1.09) H D 11/02/16 05:15 Assessment/Plan Gram Negative bacteremia/ probable biliary sepsis Pancreatic ca S/P Biliary stent Elevated LFTs Pending identification of blood isolate will substitute meropenem
[2016-11-02] MEDS ORDERED: VANCOMYCIN 1 GRAM (PRE-DOCKED) 250 ML IVPB SCH (16:00)
--- NOTE | 2016-11-02 17:18 | PN ---
Progress Note (short form) - Note Progress Note: ^^^^^^^^^^^^^^^^^^ cover for Dr Muniz Current Medications Atorvastatin Calcium (Lipitor -) 20 mg PO HS [facility] Docusate Sodium (Colace -) 100 mg PO DAILY [facility] Last Admin: 11/02/16 12:55 Dose: 100 mg Sodium Chloride (Normal Saline -) 1,000 mls @ 125 mls/hr IV ASDIR GALO Last Admin: 11/02/16 12:58 Dose: 125 mls/hr Sodium Chloride (Normal Saline -) 1,000 mls @ 125 mls/hr IV ASDIR GALO Stop: 11/02/16 22:29 Last Admin: 11/02/16 12:58 Dose: 125 mls/hr Meropenem 500 mg/ Dextrose 100 mls @ 400 mls/hr IVPB Q8H-IV [facility] Lisinopril (Prinivil) 20 mg PO BID [facility] Last Admin: 11/02/16 12:55 Dose: 20 mg Rivaroxaban (Xarelto -) 20 mg PO [facility] Senna (Senna -) 1 tab PO DAILY [facility] Last Admin: 11/02/16 12:55 Dose: 1 tab Tamsulosin HCl (Flomax -) 0.4 mg PO DAILY@0830 [facility] Tamsulosin HCl (Flomax -) 0.4 mg PO [facility] Laboratory Results - last 24 hr 11/01/16 11/01/16 11/02/16 18:00 18:00 02:23 WBC RBC Hgb Hct MCV MCH MCHC RDW Plt Count MPV Neutrophils % Lymphocytes % Monocytes % Eosinophils % Basophils % PT with INR INR Sodium 138 Potassium 3.8 Chloride 106 D Carbon Dioxide 25 Anion Gap 7 L BUN 12 D Creatinine 0.7 D Creat Clearance w eGFR > 60 Random Glucose 174 H D Lactic Acid 2.5 H* 0.7 Calcium 7.9 L Phosphorus Magnesium Total Bilirubin 1.6 H D AST 50 H D ALT 82 H D Alkaline Phosphatase 246 H D Creatine Kinase Troponin I Total Protein 5.3 L Albumin 2.4 L D 11/02/16 11/02/16 11/02/16 05:15 05:15 05:15 WBC 9.1 D RBC 4.42 Hgb 13.3 Hct 38.6 MCV 87.4 MCH 30.0 MCHC 34.4 RDW 15.2 Plt Count 216 MPV 9.0 Neutrophils % 79.4 Lymphocytes % 7.9 L D Monocytes % 10.8 H D Eosinophils % 1.4 D Basophils % 0.5 D PT with INR 16.20 H INR 1.46 H D Sodium 136 Potassium 3.6 Chloride 99 Carbon Dioxide 27 Anion Gap 10 BUN 9 D Creatinine 0.6 L Creat Clearance w eGFR > 60 Random Glucose 129 H D Lactic Acid Calcium 8.4 L Phosphorus 1.7 L Magnesium 2.0 D Total Bilirubin 2.0 H D AST 57 H ALT 84 H Alkaline Phosphatase 278 H Creatine Kinase Troponin I Total Protein 5.7 L Albumin 2.7 L 11/02/16 05:15 WBC RBC Hgb Hct MCV MCH MCHC RDW Plt Count MPV Neutrophils % Lymphocytes % Monocytes % Eosinophils % Basophils % PT with INR INR Sodium Potassium Chloride Carbon Dioxide Anion Gap BUN Creatinine Creat Clearance w eGFR Random Glucose Lactic Acid Calcium Phosphorus Magnesium Total Bilirubin AST ALT Alkaline Phosphatase Creatine Kinase 44 Troponin I < 0.02 Total Protein Albumin Vital Signs Temperature 97.8 F 11/02/16 15:26 Pulse Rate 98 H 11/02/16 15:26 Respiratory Rate 20 11/02/16 15:26 Blood Pressure 156/89 11/02/16 15:26 O2 Sat by Pulse Oximetry (%) 96 11/02/16 15:10 CC: no issues today `````````````````````````` skin--no acute lesions eyes--mildly icteric heart--RR Chest--no tenderness over port abd--benign lungs--grossly clear neuro--alert, coherent; speech fluent, moves all E's ``````````````````````````````````` Summ > Gm neg sepsis--now stable w/ ABs; 2nd EColi (see ID note); source possibly GI ; ? Port site > Pancreatic cancer--s/p stent placement 3 days [employer] @ [employer]; await official report for HIDA > rising LFTs--raises concern especially if HIDA is okay; see GI note; check daily labs > low PO4--cause unclear; replenish > High BP--readings on the rise; resume Uriel-i ~~~~~~~~~~~~~~~ dR Marcos...........for Dr Muniz
[2016-11-02] MEDS ORDERED: amLODIPine BESYLATE 5 MG TABLET (FP) PO ONE (17:55)
[2016-11-02] MEDS ORDERED: PIPERACILLIN/TAZOB 3.375 GM 50 ML IVPB SCH (18:00)
[2016-11-02] MEDS: MEROPENEM 500 MG in DEXTROSE 5%-WATER 100 ML IVPB SCH (18:10)
--- NOTE | 2016-11-02 18:11 | PN ---
GI Progress Note Subjective: patient has gram negative bacteremia, he developed postprandial pain and fullness, ,HIDA scan revealed tracer to be in the small bowel - Objective Vital Signs: Vital Signs Temperature 97.8 F 11/02/16 15:26 Pulse Rate 98 H 11/02/16 15:26 Respiratory Rate 11/02/16 15:26 Blood Pressure 156/89 11/02/16 15:26 O2 Sat by Pulse Oximetry (%) 96 11/02/16 15:10 Constitutional: Well Nourished Eyes: Yes: Conjunctiva Clear HENT: Yes: Atraumatic Neck: Yes: Trachea Midline Cardiovascular: Yes: Regular Rate and Rhythm Respiratory: Yes: CTA Bilaterally ...Palpate: Yes: Soft. No: Firm/Rigid, Guarding, Mass, Pulsatile Mass, Splenomegaly, Tenderness Labs: CBC, BMP 11/02/16 05:15 11/02/16 05:15 INR, PTT INR 1.46 (0.82-1.09) H D 11/02/16 05:15 Problem List - Problems (1) Sepsis Assessment/Plan: associated with elevated Total bilirubin R> continue antibiotics repeat LFTS if upward trend is noted would advise transfer to [place] Code(s): A41.9 - SEPSIS, UNSPECIFIED ORGANISM Qualifiers: Sepsis type: sepsis due to unspecified organism Qualified Code(s): A41.9 - Sepsis, unspecified organism
[2016-11-02] MEDS: SODIUM CHLORIDE 0.45% 1,000 ML IV SCH (18:17)
[2016-11-02] MEDS: ATORVASTATIN CA 20 MG TABLET (FP) PO SCH (21:52)
[2016-11-02] MEDS: RIVAROXABAN 20 MG TABLET PO SCH (21:52)
[2016-11-03] MEDS: MEROPENEM 500 MG in DEXTROSE 5%-WATER 100 ML IVPB SCH ×2 (01:34→09:49)
[2016-11-03 07:31] LABS: BASOPHIL 0.4 % (0-2.0); EOSINOPHIL 0.8 % (0-4.5); MCH 29.6 pg (25.7-33.7); MCHC 34.2 g/dl (32.0-35.9); MEAN CELL VOLUME 86.4 fl (80-96); MEAN PLT VOLUME 8.3 fl (7.5-11.1); NEUTROPHILS 69.8 % (42.8-82.8); PLATELET COUNT 201 K/MM3 (134-434); RDW 15.1 % (11.9-15.9); WHITE BLOOD COUNT 6.2 K/mm3 (4.0-10.0)
[2016-11-03 07:59] LABS: ALBUMIN 2.7 g/dl (3.4-5.0); ANION GAP 11 (8-16); BILIRUBIN,TOTAL 1.6 mg/dL (0.2-1.0); CALCIUM 8.5 mg/dL (8.5-10.1); CO2 27 mmol/L (21-32); CREATININE 0.5 mg/dL (0.7-1.3); GLUCOSE,RANDOM 110 mg/dL (74-106); MAGNESIUM 2.1 mg/dL (1.8-2.4); SGOT/AST 46 U/L (15-37); SGPT/ALT 74 U/L (12-78); TOT PROT 5.9 g/dl (6.4-8.2)
[2016-11-03 08:00] LABS: ALK PHOS 273 U/L (45-117)
[2016-11-03] MEDS ORDERED: TAMSULOSIN HCL 0.4 MG CAP.ER.24H (FP) PO SCH (08:30)
[2016-11-03] MEDS: DOCUSATE SODIUM 100 MG CAPSULE (FP) PO SCH (09:48)
[2016-11-03] MEDS: LISINOPRIL 10 MG TABLET (FP) PO SCH ×2 (09:48→21:08)
[2016-11-03] MEDS: SENNOSIDES 8.6MG TABLET (FP) PO SCH (09:48)
--- NOTE | 2016-11-03 11:04 | PN ---
Progress Note, Physician History of Present Illness: awake, alert complains of mild epigastric/ RUQ pain No N/V +BM yesterday Afebrile WBC 6.2 BC LF to be identified - Current Medication List Current Medications: Active Medications Atorvastatin Calcium (Lipitor -) 20 mg PO [facility] Last Admin: 11/02/16 21:52 Dose: 20 mg Docusate Sodium (Colace -) 100 mg PO DAILY [facility] Last Admin: 11/03/16 09:48 Dose: 100 mg Meropenem 500 mg/ Dextrose 100 mls @ 400 mls/hr IVPB Q8H-IV [facility] Last Admin: 11/03/16 09:49 Dose: 400 mls/hr Sodium Chloride (1/2 Normal Saline) 1,000 mls @ 42 mls/hr IV ASDIR [facility] Last Admin: 11/02/16 18:17 Dose: 42 mls/hr Lisinopril (Prinivil) 20 mg PO BID [facility] Last Admin: 11/03/16 09:48 Dose: 20 mg Rivaroxaban (Xarelto -) 20 mg PO [facility] Last Admin: 11/02/16 21:52 Dose: 20 mg Senna (Senna -) 1 tab PO DAILY [facility] Last Admin: 11/03/16 09:48 Dose: 1 tab Tamsulosin HCl (Flomax -) 0.4 mg PO DAILY@0830 [facility] Last Admin: 11/03/16 09:05 Dose: 0.4 mg Tamsulosin HCl (Flomax -) 0.4 mg PO [facility] Last Admin: 11/02/16 21:53 Dose: 0.4 mg - Objective Vital Signs: Vital Signs Temperature 98 F 11/03/16 06:08 Pulse Rate 92 H 11/03/16 06:08 Respiratory Rate 20 11/03/16 06:08 Blood Pressure 137/95 11/03/16 06:08 O2 Sat by Pulse Oximetry (%) 96 11/02/16 21:00 Constitutional: Yes: No Distress Eyes: Yes: Conjunctiva Clear Cardiovascular: Yes: Regular Rate and Rhythm, S1, S2 Respiratory: Yes: CTA Bilaterally Gastrointestinal: Yes: Normal Bowel Sounds, Soft. No: Tenderness Edema: No Labs: CBC, BMP 11/03/16 06:00 11/03/16 06:00 INR, PTT INR 1.46 (0.82-1.09) H D 11/02/16 05:15 Assessment/Plan Gram Negative bacteremia/ probable biliary sepsis Pancreatic ca S/P Biliary stent Elevated LFTs Pending identification of blood isolate continue meropenem
[2016-11-03] MEDS ORDERED: DEXTROSE 5%-WATER - 50 ML IVPB ONE (16:58)
[2016-11-03] MEDS ORDERED: ceFAZolin SODIUM 1 GM VIAL ONE (16:58)
[2016-11-03] MEDS: CEFAZOLIN 1 GM in DEXTROSE 5%-WATER - 50 ML IVPB SCH (17:34)
--- NOTE | 2016-11-03 18:37 | PN ---
GI Progress Note Subjective: clinicallly imrpoved this evening, daniel nausea, no vomiting,no abdominal pain, lfts downward trend - Objective Vital Signs: Vital Signs Temperature 97.5 F L 11/03/16 16:15 Pulse Rate 103 H 11/03/16 16:15 Respiratory Rate 20 11/03/16 16:15 Blood Pressure 140/81 11/03/16 16:15 O2 Sat by Pulse Oximetry (%) 95 11/03/16 09:00 Constitutional: Well Nourished Eyes: Yes: Conjunctiva Clear HENT: Yes: Atraumatic Neck: Yes: Trachea Midline Cardiovascular: Yes: Regular Rate and Rhythm Respiratory: Yes: CTA Bilaterally ...Palpate: Yes: Soft. No: Firm/Rigid, Guarding, Hepatomegaly, Mass, Pulsatile Mass, Splenomegaly, Tenderness, Tenderness, Epigastium Labs: CBC, BMP 11/03/16 06:00 11/03/16 06:00 INR, PTT INR 1.46 (0.82-1.09) H D 11/02/16 05:15 Problem List - Problems (1) Sepsis Assessment/Plan: most likely biliary in etiology R> conitnue antibiotics, no need to transfer as patient is clinically improved Code(s): A41.9 - SEPSIS, UNSPECIFIED ORGANISM Qualifiers: Sepsis type: sepsis due to unspecified organism Qualified Code(s): A41.9 - Sepsis, unspecified organism
[2016-11-03] MEDS: RIVAROXABAN 20 MG TABLET PO SCH (21:08)
[2016-11-03] MEDS: ATORVASTATIN CA 20 MG TABLET (FP) PO SCH (21:08)
[2016-11-03] MEDS: TAMSULOSIN HCL 0.4 MG CAP.ER.24H (FP) PO SCH (21:08)
--- NOTE | 2016-11-03 22:21 | PN ---
Progress Note, Physician History of Present Illness: Feels better. RUQ pain has subsided.Denies N/V. Denies any shaking chills. Appetite is poor. - Current Medication List Current Medications: Active Medications Atorvastatin Calcium (Lipitor -) 20 mg PO HS [facility] Last Admin: 11/03/16 21:08 Dose: 20 mg Docusate Sodium (Colace -) 100 mg PO DAILY [facility] Last Admin: 11/03/16 09:48 Dose: 100 mg Sodium Chloride (1/2 Normal Saline) 1,000 mls @ 42 mls/hr IV ASDIR [facility] Last Admin: 11/02/16 18:17 Dose: 42 mls/hr Cefazolin Sodium 1 gm/ (Dextrose) 50 mls @ 100 mls/hr IVPB Q8H-IV [facility] Last Admin: 11/03/16 17:34 Dose: 100 mls/hr Lisinopril (Prinivil) 20 mg PO BID [facility] Last Admin: 11/03/16 21:08 Dose: 20 mg Rivaroxaban (Xarelto -) 20 mg PO [facility] Last Admin: 11/03/16 21:08 Dose: 20 mg Senna (Senna -) 1 tab PO DAILY [facility] Last Admin: 11/03/16 09:48 Dose: 1 tab Tamsulosin HCl (Flomax -) 0.4 mg PO [facility] Last Admin: 11/03/16 21:08 Dose: 0.4 mg - Objective Vital Signs: Vital Signs Temperature 97.5 F L 11/03/16 16:15 Pulse Rate 103 H 11/03/16 16:15 Respiratory Rate 20 11/03/16 16:15 Blood Pressure 140/81 11/03/16 16:15 O2 Sat by Pulse Oximetry (%) 95 11/03/16 09:00 Constitutional: Yes: No Distress, Calm Eyes: Yes: WNL HENT: Yes: WNL Neck: Yes: Supple Cardiovascular: Yes: Regular Rate and Rhythm, S1, S2 Respiratory: Yes: WNL, Regular, CTA Bilaterally Gastrointestinal: Yes: Normal Bowel Sounds, Soft Genitourinary: Yes: WNL Musculoskeletal: Yes: WNL Extremities: Yes: WNL Edema: No Peripheral Pulses WNL: Yes Integumentary: Yes: WNL Neurological: Yes: Alert, Oriented ...Motor Strength: WNL Psychiatric: Yes: Alert, Oriented Labs: CBC, BMP 11/03/16 06:00 11/03/16 06:00 INR, PTT INR 1.46 (0.82-1.09) H D 11/02/16 05:15 - ....Imaging Chest X-ray: Report Reviewed, Image Reviewed EKG: Report Reviewed, Image Reviewed Other: Report Reviewed (Hida scan report reviewed) Problem List - Problems (1) Bacteremia Assessment/Plan: E COLI bacteremia. Sensitive to all antibiotics Code(s): R78.81 - BACTEREMIA (2) HTN (hypertension) Assessment/Plan: BP under good control Code(s): I10 - ESSENTIAL (PRIMARY) HYPERTENSION Qualifiers: Hypertension type: secondary to endocrine disorders Qualified Code(s ): I15.2 - Hypertension secondary to endocrine disorders (3) RBBB Code(s): I45.10 - UNSPECIFIED RIGHT BUNDLE-BRANCH BLOCK (4) Adenocarcinoma of pancreas Assessment/Plan: No metastasis to liver or lung Code(s): C25.9 - MALIGNANT NEOPLASM OF PANCREAS, UNSPECIFIED Assessment/Plan Dr. Dugan has switched abtibiotics to Kefzol and patient remains afebrile and without pain. LFT,s are tending downward .Con. IV antibiotic
[2016-11-04] MEDS: SODIUM CHLORIDE 0.45% 1,000 ML IV SCH ×2 (00:15→21:32)
[2016-11-04] MEDS ORDERED: ceFAZolin SODIUM 1 GM VIAL ONE ×4 (01:14→20:28)
[2016-11-04] MEDS ORDERED: DEXTROSE 5%-WATER - 50 ML IVPB ONE ×4 (01:14→20:28)
[2016-11-04] MEDS: CEFAZOLIN 1 GM in DEXTROSE 5%-WATER - 50 ML IVPB SCH ×3 (01:28→18:23)
[2016-11-04] MEDS: LISINOPRIL 10 MG TABLET (FP) PO SCH ×2 (09:41→21:34)
[2016-11-04] MEDS: DOCUSATE SODIUM 100 MG CAPSULE (FP) PO SCH (09:41)
[2016-11-04] MEDS: SENNOSIDES 8.6MG TABLET (FP) PO SCH (09:41)
[2016-11-04] MEDS ORDERED: PT OWN MED DRAWER 7, Y5N ONE (10:33)
--- NOTE | 2016-11-04 11:43 | PN ---
Progress Note, Physician History of Present Illness: OOB in chair No c/o abdominal pain No N/V + BM Low grade fever past 24hr - Current Medication List Current Medications: Active Medications Atorvastatin Calcium (Lipitor -) 20 mg PO HS [facility] Last Admin: 11/03/16 21:08 Dose: 20 mg Docusate Sodium (Colace -) 100 mg PO DAILY [facility] Last Admin: 11/04/16 09:41 Dose: 100 mg Sodium Chloride (1/2 Normal Saline) 1,000 mls @ 42 mls/hr IV ASDIR [facility] Last Admin: 11/04/16 00:15 Dose: 42 mls/hr Cefazolin Sodium 1 gm/ (Dextrose) 50 mls @ 100 mls/hr IVPB Q8H-IV [facility] Last Admin: 11/04/16 09:41 Dose: 100 mls/hr Lisinopril (Prinivil) 20 mg PO BID [facility] Last Admin: 11/04/16 09:41 Dose: 20 mg Rivaroxaban (Xarelto -) 20 mg PO [facility] Last Admin: 11/03/16 21:08 Dose: 20 mg Senna (Senna -) 1 tab PO DAILY [facility] Last Admin: 11/04/16 09:41 Dose: 1 tab Tamsulosin HCl (Flomax -) 0.4 mg PO [facility] Last Admin: 11/03/16 21:08 Dose: 0.4 mg - Objective Vital Signs: Vital Signs Temperature 98.6 F 11/04/16 08:52 Pulse Rate 113 H 11/04/16 08:52 Respiratory Rate 18 11/04/16 09:00 Blood Pressure 138/91 11/04/16 08:52 O2 Sat by Pulse Oximetry (%) 96 11/04/16 09:00 Constitutional: Yes: No Distress Eyes: Yes: Conjunctiva Clear Cardiovascular: Yes: Regular Rate and Rhythm, S1, S2 Respiratory: Yes: CTA Bilaterally Gastrointestinal: Yes: Normal Bowel Sounds, Soft. No: Tenderness Edema: No Labs: CBC, BMP 11/03/16 06:00 11/03/16 06:00 INR, PTT INR 1.46 (0.82-1.09) H D 11/02/16 05:15 Assessment/Plan Gram Negative bacteremia/ probable biliary sepsis- E coli Pancreatic ca S/P Biliary stent Elevated LFTs Continue IV cefazolin Day #4 IV antibiotics Anticipate 7d course of IV antibiotics followed by 7d po
--- NOTE | 2016-11-04 11:52 | PN ---
Progress Note (short form) - Note Progress Note: PULMONARY INTERMITTANT LOW GRADE TEMPS CHART REVIEWED AMBULATING IN [facility] SLIGHT OVERALL IMPROVEMENT LABS/MEDS/NOTES/IMAGING REVIEWED Gram Negative bacteremia/ biliary sepsis- E coli Pancreatic ca S/P Biliary stent Elevated LFTs Plan as outlined by ID Continue IV cefazolin Day #4 IV antibiotics Anticipate 7d course of IV antibiotics followed by 7d po Enriqueta MAZARIEGOS MD
--- NOTE | 2016-11-04 19:31 | PN ---
GI Progress Note Subjective: Patient is comfortable and with no pain Transaminases trending down, t bili 2.0--> 1.6 alk phos still elevated Eating regular diet and tolerating - Objective Vital Signs: Vital Signs Temperature 97.9 F 11/04/16 16:20 Pulse Rate 81 11/04/16 16:20 Respiratory Rate 20 11/04/16 16:20 Blood Pressure 124/76 11/04/16 16:20 O2 Sat by Pulse Oximetry (%) 96 11/04/16 09:00 Constitutional: Well Nourished, No Distress HENT: Yes: Atraumatic Cardiovascular: Yes: Regular Rate and Rhythm Respiratory: Yes: CTA Bilaterally Gastrointestinal Inspection: Yes: WNL ...Auscultate: Yes: Normoactive Bowel Sounds Labs: CBC, BMP 11/03/16 06:00 11/03/16 06:00 INR, PTT INR 1.46 (0.82-1.09) H D 11/02/16 05:15 Hepatic Panel Total Bilirubin 1.6 mg/dL (0.2-1.0) H 11/03/16 06:00 AST 46 U/L (15-37) H 11/03/16 06:00 ALT 74 U/L (12-78) 11/03/16 06:00 Alkaline Phosphatase 273 U/L (45-117) H 11/03/16 06:00 Albumin 2.7 g/dl (3.4-5.0) L 11/03/16 06:00 Last Vital Signs Temp Pulse Resp BP Pulse Ox 97.9 F 81 20 124/76 96 11/04/16 16:20 11/04/16 16:20 11/04/16 16:20 11/04/16 16:20 11/04/16 09:00 Assessment/Plan Patient with pancreatic ca s/p metal stent with subsequent ?biliary sepsis HIDA shows good drainage through stent Possible intrahepatic obstruction secondary to tumor Reasonably stable at this time Continue AbRx.
[2016-11-04] MEDS: TAMSULOSIN HCL 0.4 MG CAP.ER.24H (FP) PO SCH (21:33)
[2016-11-04] MEDS: ATORVASTATIN CA 20 MG TABLET (FP) PO SCH (21:34)
[2016-11-04] MEDS: RIVAROXABAN 20 MG TABLET PO SCH (21:34)
--- NOTE | 2016-11-04 23:33 | PN ---
Progress Note, Physician History of Present Illness: Feels much better. Denies any abdominal pain , N/V. Denies any shaking chills. Appetite is poor. - Current Medication List Current Medications: Active Medications Atorvastatin Calcium (Lipitor -) 20 mg PO HS [facility] Last Admin: 11/04/16 21:34 Dose: 20 mg Docusate Sodium (Colace -) 100 mg PO DAILY [facility] Last Admin: 11/04/16 09:41 Dose: 100 mg Sodium Chloride (1/2 Normal Saline) 1,000 mls @ 42 mls/hr IV ASDIR [facility] Last Admin: 11/04/16 21:32 Dose: Not Given Cefazolin Sodium 1 gm/ (Dextrose) 50 mls @ 100 mls/hr IVPB Q8H-IV [facility] Last Admin: 11/04/16 18:23 Dose: 100 mls/hr Lisinopril (Prinivil) 20 mg PO BID [facility] Last Admin: 11/04/16 21:34 Dose: 20 mg Rivaroxaban (Xarelto -) 20 mg PO HS [facility] Last Admin: 11/04/16 21:34 Dose: 20 mg Senna (Senna -) 1 tab PO DAILY [facility] Last Admin: 11/04/16 09:41 Dose: 1 tab Tamsulosin HCl (Flomax -) 0.4 mg PO HS [facility] Last Admin: 11/04/16 21:33 Dose: 0.4 mg - Objective Vital Signs: Vital Signs Temperature 97.2 F L 11/04/16 22:00 Pulse Rate 82 11/04/16 22:00 Respiratory Rate 20 11/04/16 22:00 Blood Pressure 124/76 11/04/16 22:00 O2 Sat by Pulse Oximetry (%) 96 11/04/16 21:00 Constitutional: Yes: Well Nourished, No Distress Eyes: Yes: WNL HENT: Yes: WNL Neck: Yes: Supple Cardiovascular: Yes: Regular Rate and Rhythm Respiratory: Yes: Regular, CTA Bilaterally Gastrointestinal: Yes: Normal Bowel Sounds, Soft Genitourinary: Yes: WNL Musculoskeletal: Yes: WNL Extremities: Yes: WNL Edema: No Peripheral Pulses WNL: Yes Integumentary: Yes: WNL Neurological: Yes: WNL Psychiatric: Yes: Alert, Oriented Labs: CBC, BMP 11/03/16 06:00 11/03/16 06:00 INR, PTT INR 1.46 (0.82-1.09) H D 11/02/16 05:15 Problem List - Problems (1) Adenocarcinoma of pancreas Assessment/Plan: Will be started on new chemotherapy as the tumor shows progression on present chemo Code(s): C25.9 - MALIGNANT NEOPLASM OF PANCREAS, UNSPECIFIED (2) HTN (hypertension) Code(s): I10 - ESSENTIAL (PRIMARY) HYPERTENSION Qualifiers: Hypertension type: secondary to endocrine disorders Qualified Code(s ): I15.2 - Hypertension secondary to endocrine disorders; I15.2 - Hypertension secondary to endocrine disorders; I15.2 - Hypertension secondary to endocrine disorders (3) RBBB Code(s): I45.10 - UNSPECIFIED RIGHT BUNDLE-BRANCH BLOCK (4) Bacteremia Assessment/Plan: Continue IV antibiotics Code(s): R78.81 - BACTEREMIA Assessment/Plan Assess:Continue IV antibiotics with kefzol. He will be discharged after completion of recommended period. He will continue chemo at [facility] outpatient center in [place], [place].
[2016-11-05] MEDS: CEFAZOLIN 1 GM in DEXTROSE 5%-WATER - 50 ML IVPB SCH ×3 (01:53→17:42)
[2016-11-05] MEDS ORDERED: ceFAZolin SODIUM 1 GM VIAL ONE ×3 (11:17→20:42)
[2016-11-05] MEDS ORDERED: DEXTROSE 5%-WATER - 50 ML IVPB ONE ×3 (11:18→20:42)
[2016-11-05] MEDS: LISINOPRIL 10 MG TABLET (FP) PO SCH ×2 (11:22→21:22)
[2016-11-05] MEDS: SENNOSIDES 8.6MG TABLET (FP) PO SCH (11:22)
[2016-11-05] MEDS: DOCUSATE SODIUM 100 MG CAPSULE (FP) PO SCH (11:22)
--- NOTE | 2016-11-05 11:46 | PN ---
Progress Note, Physician History of Present Illness: OOB in chair Had episode of epigastric abdominal pain relieved with analgesics No fever/ chills WBC 6.2 - Current Medication List Current Medications: Active Medications Atorvastatin Calcium (Lipitor -) 20 mg PO HS [facility] Last Admin: 11/04/16 21:34 Dose: 20 mg Docusate Sodium (Colace -) 100 mg PO DAILY [facility] Last Admin: 11/05/16 11:22 Dose: 100 mg Sodium Chloride (1/2 Normal Saline) 1,000 mls @ 42 mls/hr IV ASDIR [facility] Last Admin: 11/04/16 21:32 Dose: Not Given Cefazolin Sodium 1 gm/ (Dextrose) 50 mls @ 100 mls/hr IVPB Q8H-IV [facility] Last Admin: 11/05/16 11:21 Dose: 100 mls/hr Lisinopril (Prinivil) 20 mg PO BID [facility] Last Admin: 11/05/16 11:22 Dose: 20 mg Rivaroxaban (Xarelto -) 20 mg PO [facility] Last Admin: 11/04/16 21:34 Dose: 20 mg Senna (Senna -) 1 tab PO DAILY [facility] Last Admin: 11/05/16 11:22 Dose: 1 tab Tamsulosin HCl (Flomax -) 0.4 mg PO [facility] Last Admin: 11/04/16 21:33 Dose: 0.4 mg - Objective Vital Signs: Vital Signs Temperature 97.7 F 11/05/16 05:46 Pulse Rate 89 11/05/16 05:46 Respiratory Rate 20 11/05/16 05:46 Blood Pressure 145/91 11/05/16 05:46 O2 Sat by Pulse Oximetry (%) 96 11/04/16 21:00 Constitutional: Yes: No Distress Eyes: Yes: Conjunctiva Clear Cardiovascular: Yes: Regular Rate and Rhythm, S1, S2 Respiratory: Yes: CTA Bilaterally Gastrointestinal: Yes: Normal Bowel Sounds, Soft. No: Tenderness Labs: CBC, BMP 11/03/16 06:00 11/03/16 06:00 INR, PTT INR 1.46 (0.82-1.09) H D 11/02/16 05:15 Assessment/Plan Gram Negative bacteremia/ probable biliary sepsis- E coli Pancreatic ca S/P Biliary stent Elevated LFTs Continue IV cefazolin Day # 5 IV antibiotics Anticipate 7d course of IV antibiotics followed by 7d po
--- NOTE | 2016-11-05 16:42 | PN ---
GI Progress Note Subjective: no abdominal pain, tolerating diet - Objective Vital Signs: Vital Signs Temperature 98.9 F 11/05/16 15:29 Pulse Rate 74 11/05/16 15:29 Respiratory Rate 20 11/05/16 15:29 Blood Pressure 121/76 11/05/16 15:29 O2 Sat by Pulse Oximetry (%) 96 11/05/16 10:00 Constitutional: No Distress Eyes: Yes: Conjunctiva Clear Cardiovascular: Yes: Regular Rate and Rhythm Respiratory: Yes: CTA Bilaterally ...Palpate: Yes: Soft. No: Firm/Rigid, Guarding, Tenderness, Epigastium, Tenderness, Rebound Labs: CBC, BMP 11/03/16 06:00 11/03/16 06:00 INR, PTT INR 1.46 (0.82-1.09) H D 11/02/16 05:15 Problem List - Problems (1) Sepsis Assessment/Plan: secondary to biliiary etilogy, s/p metallic stent insertion r>continue antibiotic if ok with ID switch to po Levaquin 500md daily for 7 days advised to follow up with his gi at [facility] Code(s): A41.9 - SEPSIS, UNSPECIFIED ORGANISM Qualifiers: Sepsis type: Escherichia coli Qualified Code(s): A41.51 - Sepsis due to Escherichia coli [E. coli]
[2016-11-05] MEDS: SODIUM CHLORIDE 0.45% 1,000 ML IV SCH (21:20)
[2016-11-05] MEDS: TAMSULOSIN HCL 0.4 MG CAP.ER.24H (FP) PO SCH (21:21)
[2016-11-05] MEDS: ATORVASTATIN CA 20 MG TABLET (FP) PO SCH (21:21)
[2016-11-05] MEDS: RIVAROXABAN 20 MG TABLET PO SCH (21:22)
--- NOTE | 2016-11-05 23:10 | PN ---
Progress Note, Physician History of Present Illness: Continues to feel better.Denies any abdominal pain. Denies shaking chills. Appetite is poor. - Current Medication List Current Medications: Active Medications Atorvastatin Calcium (Lipitor -) 20 mg PO HS [facility] Last Admin: 11/05/16 21:21 Dose: 20 mg Docusate Sodium (Colace -) 100 mg PO DAILY [facility] Last Admin: 11/05/16 11:22 Dose: 100 mg Sodium Chloride (1/2 Normal Saline) 1,000 mls @ 42 mls/hr IV ASDIR [facility] Last Admin: 11/05/16 21:20 Dose: Not Given Cefazolin Sodium 1 gm/ (Dextrose) 50 mls @ 100 mls/hr IVPB Q8H-IV [facility] Last Admin: 11/05/16 17:42 Dose: 100 mls/hr Lisinopril (Prinivil) 20 mg PO BID [facility] Last Admin: 11/05/16 21:22 Dose: 20 mg Rivaroxaban (Xarelto -) 20 mg PO HS [facility] Last Admin: 11/05/16 21:22 Dose: 20 mg Senna (Senna -) 1 tab PO DAILY [facility] Last Admin: 11/05/16 11:22 Dose: 1 tab Tamsulosin HCl (Flomax -) 0.4 mg PO HS [facility] Last Admin: 11/05/16 21:21 Dose: 0.4 mg - Objective Vital Signs: Vital Signs Temperature 98.9 F 11/05/16 22:00 Pulse Rate 83 11/05/16 22:00 Respiratory Rate 20 11/05/16 22:00 Blood Pressure 142/82 11/05/16 22:00 O2 Sat by Pulse Oximetry (%) 96 11/05/16 21:00 Constitutional: Yes: Well Nourished, No Distress, Calm Eyes: Yes: WNL HENT: Yes: WNL Neck: Yes: Supple Cardiovascular: Yes: Regular Rate and Rhythm, S1, S2 Respiratory: Yes: Regular, CTA Bilaterally Gastrointestinal: Yes: Normal Bowel Sounds, Soft Genitourinary: Yes: WNL Extremities: Yes: WNL Edema: No Peripheral Pulses WNL: Yes Integumentary: Yes: WNL Neurological: Yes: Alert, Oriented Labs: CBC, BMP 11/03/16 06:00 11/03/16 06:00 INR, PTT INR 1.46 (0.82-1.09) H D 11/02/16 05:15 Problem List - Problems (1) Bacteremia Assessment/Plan: Admitted with ECOLI bacteremia and is on IV Kefzol and has remained afebrile with improving LFT post stent p;acement in CBD Code(s): R78.81 - BACTEREMIA (2) Adenocarcinoma of pancreas Assessment/Plan: Tumor is locally advanced without any obvious mets to liver. Code(s): C25.9 - MALIGNANT NEOPLASM OF PANCREAS, UNSPECIFIED (3) HTN (hypertension) Assessment/Plan: BP is controlled with present meds Code(s): I10 - ESSENTIAL (PRIMARY) HYPERTENSION Qualifiers: Hypertension type: secondary to endocrine disorders Qualified Code(s ): I15.2 - Hypertension secondary to endocrine disorders (4) RBBB Code(s): I45.10 - UNSPECIFIED RIGHT BUNDLE-BRANCH BLOCK Assessment/Plan IMP: ECOLI bacteremia, Adenoarcinoma pancreas with CBD obstruction Hypertension BPH ASS: Continue 7 day course of IV antibiotics as recommended by infectious disease
[2016-11-06] MEDS: CEFAZOLIN 1 GM in DEXTROSE 5%-WATER - 50 ML IVPB SCH ×3 (02:09→18:22)
[2016-11-06] MEDS: SODIUM CHLORIDE 0.45% 1,000 ML IV SCH ×2 (02:13→18:23)
[2016-11-06 07:31] LABS: BASOPHIL 0.9 % (0-2.0); EOSINOPHIL 3.2 % (0-4.5); MCH 29.3 pg (25.7-33.7); MCHC 34.5 g/dl (32.0-35.9); MEAN CELL VOLUME 84.9 fl (80-96); MEAN PLT VOLUME 8.5 fl (7.5-11.1); NEUTROPHILS 59.3 % (42.8-82.8); PLATELET COUNT 271 K/MM3 (134-434); WHITE BLOOD COUNT 10.2 K/mm3 (4.0-10.0)
[2016-11-06 07:47] LABS: ALBUMIN 2.6 g/dl (3.4-5.0); ANION GAP 8 (8-16); CALCIUM 8.5 mg/dL (8.5-10.1); CO2 28 mmol/L (21-32); CREATININE 0.5 mg/dL (0.7-1.3); GLUCOSE,RANDOM 90 mg/dL (74-106); SGOT/AST 40 U/L (15-37)
[2016-11-06 07:51] LABS: ALK PHOS 219 U/L (45-117); BILIRUBIN,TOTAL 0.8 mg/dL (0.2-1.0); SGPT/ALT 50 U/L (12-78); TOT PROT 5.7 g/dl (6.4-8.2)
[2016-11-06] MEDS ORDERED: DEXTROSE 5%-WATER - 50 ML IVPB ONE ×3 (08:53→21:31)
[2016-11-06] MEDS ORDERED: ceFAZolin SODIUM 1 GM VIAL ONE ×3 (08:53→21:31)
[2016-11-06] MEDS: LISINOPRIL 10 MG TABLET (FP) PO SCH ×2 (10:12→22:26)
[2016-11-06] MEDS: DOCUSATE SODIUM 100 MG CAPSULE (FP) PO SCH (10:12)
[2016-11-06] MEDS: SENNOSIDES 8.6MG TABLET (FP) PO SCH (10:12)
--- NOTE | 2016-11-06 11:40 | PN ---
Progress Note, Physician History of Present Illness: Awake, alert No complaints No abdominal pain No fever/ chills WBC slightly elevated today - Current Medication List Current Medications: Active Medications Atorvastatin Calcium (Lipitor -) 20 mg PO HS [facility] Last Admin: 11/05/16 21:21 Dose: 20 mg Docusate Sodium (Colace -) 100 mg PO DAILY [facility] Last Admin: 11/06/16 10:12 Dose: 100 mg Sodium Chloride (1/2 Normal Saline) 1,000 mls @ 42 mls/hr IV ASDIR [facility] Last Admin: 11/06/16 02:13 Dose: 42 mls/hr Cefazolin Sodium 1 gm/ (Dextrose) 50 mls @ 100 mls/hr IVPB Q8H-IV [facility] Last Admin: 11/06/16 10:11 Dose: 100 mls/hr Lisinopril (Prinivil) 20 mg PO BID [facility] Last Admin: 11/06/16 10:12 Dose: 20 mg Rivaroxaban (Xarelto -) 20 mg PO [facility] Last Admin: 11/05/16 21:22 Dose: 20 mg Senna (Senna -) 1 tab PO DAILY [facility] Last Admin: 11/06/16 10:12 Dose: 1 tab Tamsulosin HCl (Flomax -) 0.4 mg PO [facility] Last Admin: 11/05/16 21:21 Dose: 0.4 mg - Objective Vital Signs: Vital Signs Temperature 97.7 F 11/06/16 10:00 Pulse Rate 93 H 11/06/16 10:00 Respiratory Rate 18 11/06/16 10:00 Blood Pressure 122/85 11/06/16 10:00 O2 Sat by Pulse Oximetry (%) 96 11/05/16 21:00 Constitutional: Yes: No Distress Eyes: Yes: Conjunctiva Clear Cardiovascular: Yes: Regular Rate and Rhythm, S1, S2 Respiratory: Yes: CTA Bilaterally Gastrointestinal: Yes: Normal Bowel Sounds, Soft. No: Tenderness Labs: CBC, BMP 11/06/16 06:30 11/06/16 06:30 INR, PTT INR 1.46 (0.82-1.09) H D 11/02/16 05:15 Assessment/Plan Gram Negative bacteremia/ probable biliary sepsis- E coli Pancreatic ca S/P Biliary stent Elevated LFTs Continue IV cefazolin Day # 6 IV antibiotics Anticipate 7d course of IV antibiotics followed by 7d po
[2016-11-06] MEDS: TAMSULOSIN HCL 0.4 MG CAP.ER.24H (FP) PO SCH (22:25)
[2016-11-06] MEDS: RIVAROXABAN 20 MG TABLET PO SCH (22:26)
[2016-11-06] MEDS: ATORVASTATIN CA 20 MG TABLET (FP) PO SCH (22:26)
--- NOTE | 2016-11-06 23:37 | PN ---
Progress Note, Physician History of Present Illness: known case of ECOLI bacteremia who has been treated IV kefzol and has remained afebrile with improvement in the LFTs. He denies any abdominal pain, fever or shaking chills - Current Medication List Current Medications: Active Medications Atorvastatin Calcium (Lipitor -) 20 mg PO HS [facility] Last Admin: 11/06/16 22:26 Dose: 20 mg Docusate Sodium (Colace -) 100 mg PO DAILY [facility] Last Admin: 11/06/16 10:12 Dose: 100 mg Sodium Chloride (1/2 Normal Saline) 1,000 mls @ 42 mls/hr IV ASDIR [facility] Last Admin: 11/06/16 18:23 Dose: Not Given Cefazolin Sodium 1 gm/ (Dextrose) 50 mls @ 100 mls/hr IVPB Q8H-IV [facility] Last Admin: 11/06/16 18:22 Dose: 100 mls/hr Lisinopril (Prinivil) 20 mg PO BID [facility] Last Admin: 11/06/16 22:26 Dose: 20 mg Rivaroxaban (Xarelto -) 20 mg PO [facility] Last Admin: 11/06/16 22:26 Dose: 20 mg Senna (Senna -) 1 tab PO DAILY [facility] Last Admin: 11/06/16 10:12 Dose: 1 tab Tamsulosin HCl (Flomax -) 0.4 mg PO [facility] Last Admin: 11/06/16 22:25 Dose: 0.4 mg - Objective Vital Signs: Vital Signs Temperature 98.2 F 11/06/16 16:30 Pulse Rate 80 11/06/16 16:30 Respiratory Rate 20 11/06/16 16:30 Blood Pressure 128/67 11/06/16 16:30 O2 Sat by Pulse Oximetry (%) 96 11/06/16 09:00 Constitutional: Yes: Well Nourished, No Distress, Calm Eyes: Yes: Conjunctiva Clear, EOM Intact HENT: Yes: WNL Neck: Yes: Supple, Trachea Midline Cardiovascular: Yes: Regular Rate and Rhythm, S1, S2 Respiratory: Yes: Regular, CTA Bilaterally Gastrointestinal: Yes: Normal Bowel Sounds, Soft Genitourinary: Yes: WNL Musculoskeletal: Yes: WNL Extremities: Yes: WNL Edema: No Peripheral Pulses WNL: Yes Integumentary: Yes: WNL Neurological: Yes: Alert, Oriented ...Motor Strength: WNL Psychiatric: Yes: Alert, Oriented Labs: CBC, BMP 11/06/16 06:30 11/06/16 06:30 INR, PTT INR 1.46 (0.82-1.09) H D 11/02/16 05:15 Problem List - Problems (1) Bacteremia Assessment/Plan: Day #6 of IV Kefzol for ECOLI bacteremia Code(s): R78.81 - BACTEREMIA (2) Adenocarcinoma of pancreas Code(s): C25.9 - MALIGNANT NEOPLASM OF PANCREAS, UNSPECIFIED (3) HTN (hypertension) Code(s): I10 - ESSENTIAL (PRIMARY) HYPERTENSION Qualifiers: Qualified Code(s): I15.2 - Hypertension secondary to endocrine disorders (4) RBBB Code(s): I45.10 - UNSPECIFIED RIGHT BUNDLE-BRANCH BLOCK Assessment/Plan Continue IV Kefzol for anothwer 24 hours and then switch to PO meds.
[2016-11-07] MEDS: CEFAZOLIN 1 GM in DEXTROSE 5%-WATER - 50 ML IVPB SCH ×2 (01:51→11:31)
[2016-11-07] MEDS: SODIUM CHLORIDE 0.45% 1,000 ML IV SCH (01:52)
[2016-11-07] MEDS ORDERED: PT OWN MED DRAWER 7, Y5N ONE (09:14)
--- NOTE | 2016-11-07 09:32 | PN ---
Progress Note (short form) - Note Progress Note: Resting in NAD. No CP or SOB. No acute events overnight. Intake & Output 11/04/16 11/05/16 11/06/16 11/07/16 23:59 23:59 23:59 23:59 Intake Total 1970 1479 1356 486 Output Total 8139 241 8696 900 Balance 370 1279 -444 -414 Last Vital Signs Temp Pulse Resp BP Pulse Ox 97.6 F 85 20 149/93 96 11/07/16 06:00 11/07/16 06:00 11/07/16 06:00 11/07/16 06:00 11/06/16 21:00 Active Medications Atorvastatin Calcium (Lipitor -) 20 mg PO [facility] Last Admin: 11/06/16 22:26 Dose: 20 mg Docusate Sodium (Colace -) 100 mg PO DAILY [facility] Last Admin: 11/06/16 10:12 Dose: 100 mg Sodium Chloride (1/2 Normal Saline) 1,000 mls @ 42 mls/hr IV ASDIR [facility] Last Admin: 11/07/16 01:52 Dose: 42 mls/hr Cefazolin Sodium 1 gm/ (Dextrose) 50 mls @ 100 mls/hr IVPB Q8H-IV [facility] Last Admin: 11/07/16 01:51 Dose: 100 mls/hr Lisinopril (Prinivil) 20 mg PO BID [facility] Last Admin: 11/06/16 22:26 Dose: 20 mg Rivaroxaban (Xarelto -) 20 mg PO [facility] Last Admin: 11/06/16 22:26 Dose: 20 mg Senna (Senna -) 1 tab PO DAILY [facility] Last Admin: 11/06/16 10:12 Dose: 1 tab Tamsulosin HCl (Flomax -) 0.4 mg PO HS [facility] Last Admin: 11/06/16 22:25 Dose: 0.4 mg Constitutional: Yes: Awake and alert, NAD Eyes: Yes: Conjunctiva Clear HENT: Yes: WNL Neck: Yes: Supple, Trachea Midline Cardiovascular: Yes: Regular Rate and Rhythm Respiratory: Yes: Few scattered rhonchi Gastrointestinal: Yes: Soft Edema: LLE: 1+, RLE: 1+ Neurological: Yes: Alert Psychiatric: Yes: Alert IMP: E Coli Bacteremia likely from a Biliary source Pancreatic cancer PLAN: ABX Per ID O2 as needed Strict I & O VTE prophylaxis Dr Parnell
[2016-11-07 10:07] VITALS: BP 150/77; PULSE 108; TEMP 98.6
[2016-11-07] MEDS ORDERED: DEXTROSE 5%-WATER - 50 ML IVPB ONE (10:12)
[2016-11-07] MEDS ORDERED: ceFAZolin SODIUM 1 GM VIAL ONE (10:12)
[2016-11-07] MEDS: SENNOSIDES 8.6MG TABLET (FP) PO SCH (11:31)
[2016-11-07] MEDS: DOCUSATE SODIUM 100 MG CAPSULE (FP) PO SCH (11:31)
[2016-11-07] MEDS: LISINOPRIL 10 MG TABLET (FP) PO SCH (11:31)
== END 2016-11-07 13:09 | disposition home or self-care (01) | DRG 862 ==
LOC: JER 02:56 → JERBED 06:02 → JICU 09:21 → J8W 11-02 12:11
PROVIDERS: ADMIT Internal Medicine Hematology & Oncology; ATTEND Internal Medicine Hematology & Oncology
DX: T81.4XXA Infection following a procedure, initial encounter (principal); A41.50 Gram-negative sepsis, unspecified; K83.1 Obstruction of bile duct; C25.9 Malignant neoplasm of pancreas, unspecified; Z87.891 Personal history of nicotine dependence; Z92.21 Personal history of antineoplastic chemotherapy; I10 Essential (primary) hypertension; E78.5 Hyperlipidemia, unspecified; E86.0 Dehydration; I45.10 Unspecified right bundle-branch block; Y83.8 Other surgical procedures as the cause of abnormal reaction of the patient, or of later complication, without mention of misadventure at the time of the procedure
CPT/HCPCS: 36415; 71010-TC; 74176-TC; 78226-TC; 80053; 81003; 81015; 83605; 83690; 83735; 84100; 84153; 84484; 85025; 85610; 85730; 87040; 87086; 87186; 90688; 93005; 93010; 99282-25; 99285-25; A9537; G0008

== ENCOUNTER 2017-01-11 16:06 | Emergency (ER) | payer OTHER ==
--- NOTE | 2017-01-11 16:14 | PDOC ---
Rapid Medical Evaluation Time Seen by Provider: 01/11/17 16:10 Medical Evaluation: Allergies Allergy/AdvReac Type Severity Reaction Status Date / Time No Known Allergies Allergy Verified 01/11/17 16:10 01/11/17 16:11 I have performed a brief in-person evaluation of this patient. The patient presents with a chief complaint of: Fatigue, nausea, vomiting and fever. Went to onc clinic in [place] today and told wbc is high, received IVF while in clinic. H/o pancreatic cancer on chemo, s/p recent admission for sepsis thought to be 2/2 biliary source (had stent placed prior to admission- ecoli on bld cx). PMD is Dr Lang Pertinent physical exam findings:VSS and well appearing in NAD I have ordered the following:cbc/chem/lactate/ua/ucx/bld cx/cxr The patient will proceed to the ED for further evaluation.
[2017-01-11 16:18] VITALS: BP 114/66; PULSE 85; TEMP 97.9; BMI 26.7
[2017-01-11 17:02] LABS: BASOPHIL 0.4 % (0-2.0); EOSINOPHIL 0.1 % (0-4.5); MCHC 32.9 g/dl (32.0-35.9); MEAN CELL VOLUME 88.1 fl (80-96); MEAN PLT VOLUME 7.7 fl (7.5-11.1); NEUTROPHILS 84.7 % (42.8-82.8); PLATELET COUNT 235 K/MM3 (134-434); RDW 19.6 % (11.9-15.9); WHITE BLOOD COUNT 13.6 K/mm3 (4.0-10.0)
[2017-01-11 17:32] LABS: ALBUMIN 3.1 g/dl (3.4-5.0); ANION GAP 7 (8-16); BILIRUBIN,TOTAL 2.1 mg/dL (0.2-1.0); CALCIUM 7.9 mg/dL (8.5-10.1); CO2 28 mmol/L (21-32); CREATININE 0.8 mg/dL (0.7-1.3); GLUCOSE,RANDOM 112 mg/dL (74-106); SGPT/ALT 174 U/L (12-78); TOT PROT 6.2 g/dl (6.4-8.2)
[2017-01-11 17:34] LABS: ALK PHOS 861 U/L (45-117); CPK 34 IU/L (39-308); TROPONIN I < 0.02 ng/ml (0.00-0.05)
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
[2017-01-11 17:47] LABS: SGOT/AST 172 U/L (15-37)
[2017-01-11 21:29] LABS: URINE LEUK ESTERASE Negative (NEGATIVE)
[2017-01-11 21:57] LABS: URINE COLOR YELLOW
[2017-01-11 21:58] LABS: URINE APPEARANCE HAZY; URINE BILIRUBIN NEGATIVE (NEGATIVE); URINE BLOOD 3+ (NEGATIVE); URINE GLUCOSE (UA) 2+ (NEGATIVE); URINE KETONE NEGATIVE (NEGATIVE); URINE NITRITE NEGATIVE (NEGATIVE); URINE PROTEIN 2+ (NEGATIVE); URINE UROBILINOGEN 0.2 (0.2-1.0)
[2017-01-11 22:18] LABS: URINE BACTERIA FEW /hpf (NEGATIVE)
[2017-01-11] MEDS ORDERED: PIPERACILLIN/TAZOB 3.375 GM/50 ML PRE-DOCKED IVPB ONE (23:20)
[2017-01-11] MEDS ORDERED: LEVOFLOXACIN 500 MG IVPB 500 MG/100 ML BAG IVPB ONE (23:46)
[2017-01-12] MEDS ORDERED: PIPERACILLIN/TAZOB 4.5 GM 4.5 GM/100 ML BAG IVPB ONE ×2 (00:05→00:07)
[2017-01-12] MEDS ORDERED: PIPERACILLIN/TAZOB 4.5 GM/100 ML PREMIX BAG IVPB ONE (00:08)
[2017-01-12] MEDS ORDERED: LEVOFLOXACIN 500 MG IVPB 500 MG/100 ML BAG IVPB ONE (01:19)
--- NOTE | 2017-01-12 12:54 | EKG ---
Test Reason : Blood Pressure : / mmHG Vent. Rate : 077 BPM Atrial Rate : 077 BPM P-R Int : 154 ms QRS Dur : 146 ms QT Int : 434 ms P-R-T Axes : 062 055 038 degrees QTc Int : 491 ms NORMAL SINUS RHYTHM RIGHT BUNDLE BRANCH BLOCK ABNORMAL ECG WHEN COMPARED WITH ECG OF 02-NOV-2016 08:27, NONSPECIFIC T WAVE ABNORMALITY NO LONGER EVIDENT IN LATERAL LEADS Confirmed by RAFAELA RODGERS, EVELIA ([id number]) on 01/12/2017 12:53:56 PM Referred By: Confirmed By:EVELIA RUSSO MD
== END 2017-01-12 02:08 | disposition home or self-care (01) ==
LOC: JER 16:06
DX: R74.8 Abnormal levels of other serum enzymes (principal); D72.828 Other elevated white blood cell count; F50.9 Eating disorder, unspecified; C25.9 Malignant neoplasm of pancreas, unspecified; I10 Essential (primary) hypertension; E78.00 Pure hypercholesterolemia, unspecified; Z90.49 Acquired absence of other specified parts of digestive tract
CPT/HCPCS: 36415; 71010-TC; 76705-TC; 80053; 81003; 81015; 82248; 82550; 83605; 84484; 85025; 87040; 87086; 93005; 93010; 99282-25

== ENCOUNTER 2017-01-12 11:02 | Inpatient (IN) | payer OTHER ==
--- NOTE | 2017-01-12 12:46 | PDOC ---
History of Present Illness - General History Source: Patient Exam Limitations: No Limitations - History of Present Illness Initial Comments: 01/12/17 13:53 The patient is a 71 year old male, with a significant past medical history of pancreatic CA (currently on chemo, last chemo 01/03 at [facility]),HTN, and HLD who was sent to the emergency department by [facility] for positive blood cultures drawn yesterday from port.. The patient notes having fevers of 101.2 yesterday morning but no fever since. He also had N/V yesterday morning which has also since resolved. Currently, he complains only of weakness that has persited for about a week. He denies any recent chills, headache or dizziness. He denies any recent diarrhea or constipation. He denies any recent chest pain or shortness of breath. He denies any recent dysuria, frequency, urgency or hematuria. Allergies: NKA Past surgical history: None reported. Social History: Nonsmoker. Denies EtOH use and recreational drug use. Primary Care Physician: <Sylvester Orozco - Last Filed: 01/12/17 13:52> <Rosie Garza - Last Filed: 01/12/17 14:18> - General Chief Complaint: Revisit, Lab Variance Stated Complaint: PCP SENT FOR ABNORMAL LABS, BACTERIA IN BLOOD Time Seen by Provider: 01/12/17 12:04 Past History <Sylvester Orozco - Last Filed: 01/12/17 13:52> - Past Medical History Anemia: No Cancer: Yes (pancreatic) COPD: No DVT: No GI Disorders: Yes HTN: Yes Hypercholesterolemia: Yes - Surgical History Cholecystectomy: Yes (with bi pass "to help GI system") - Immunization History Immunization Up to Date: Yes - Suicide/Smoking/Psychosocial Hx Smoking History: Never smoked Have you smoked in the past 12 months: No If you are a former smoker, when did you quit?: 2009 Information on smoking cessation initiated: No Hx Alcohol Use: No Drug/Substance Use Hx: No Substance Use Type: None <Rosie Garza - Last Filed: 01/12/17 14:18> - Past Medical History Allergies/Adverse Reactions: Allergies Allergy/AdvReac Type Severity Reaction Status Date / Time No Known Allergies Allergy Verified 01/12/17 11:08 Home Medications: Ambulatory Orders Lisinopril 20 mg PO BID 02/25/15 Docusate Sodium [Colace -] 100 mg PO DAILY 11/01/16 Sennosides [Senna] 8.6 mg PO DAILY 11/01/16 Tamsulosin HCl [Flomax] 0.4 mg PO HS 11/01/16 Atorvastatin Ca [Lipitor] 20 mg PO HS tablet 11/07/16 Rivaroxaban [Xarelto -] 20 mg PO HS tablet 11/07/16 Levofloxacin [Levaquin -] 500 mg PO DAILY #10 tablet 01/12/17 Review of Systems - Review of Systems Able to Perform ROS?: Yes Comments:: 01/12/17 13:53 GENERAL/CONSTITUTIONAL: +fever No chills. +weakness. HEAD, EYES, EARS, NOSE AND THROAT: No change in vision. No ear pain or discharge. No sore throat. GASTROINTESTINAL: +nausea, vomiting No diarrhea or constipation. GENITOURINARY: No dysuria, frequency, or change in urination. CARDIOVASCULAR: No chest pain or shortness of breath. RESPIRATORY: No cough, wheezing, or hemoptysis. MUSCULOSKELETAL: No joint or muscle swelling or pain. No neck or back pain. SKIN: No rash NEUROLOGIC: No headache, vertigo, loss of consciousness, or change in strength/ sensation. ENDOCRINE: No increased thirst. No abnormal weight change. HEMATOLOGIC/LYMPHATIC: No anemia, easy bleeding, or history of blood clots. ALLERGIC/IMMUNOLOGIC: No hives or skin allergy. <Sylvester Orozco - Last Filed: 01/12/17 13:52> *Physical Exam - Vital Signs Last Vital Signs Temp Pulse Resp BP Pulse Ox 97.5 F L 71 18 136/74 98 01/12/17 11:05 01/12/17 11:05 01/12/17 11:05 01/12/17 11:05 01/12/17 11:05 - Physical Exam Comments: 01/12/17 13:53 GENERAL: Awake, alert, and fully oriented, in no acute distress HEAD: No signs of trauma EYES: PERRLA, EOMI, sclera anicteric, conjunctiva clear ENT: Auricles normal inspection, hearing grossly normal, nares patent, oropharynx clear without exudates. Moist mucosa NECK: Normal ROM, supple, no lymphadenopathy, JVD, or masses CHEST WALL: RIght upper chest port with no erythema, edema and no tenderness to palpation LUNGS: Breath sounds equal, clear to auscultation bilaterally. No wheezes, and no crackles HEART: Regular rate and rhythm, normal S1 and S2, no murmurs, rubs or gallops ABDOMEN: Soft, nontender, normoactive bowel sounds. No guarding, no rebound. No masses EXTREMITIES: Normal range of motion, no edema. No clubbing or cyanosis. No cords , erythema, or tenderness BACK: No midline spinal tenderness in cervical/thoracic/lumbar region NEUROLOGICAL: Normal speech, cranial nerves intact, negative pronator drift, 5/ 5 strength in all 4 extremities, normal sensation to light touch in all 4 extremities, normal cerebellar exam, normal gait, normal reflexes and tone SKIN: Warm, Dry, normal turgor, no rashes or lesions noted. <Sylvester Orozco - Last Filed: 01/12/17 13:52> - Vital Signs Last Vital Signs Temp Pulse Resp BP Pulse Ox 97.5 F L 71 18 136/74 98 01/12/17 11:05 01/12/17 11:05 01/12/17 11:05 01/12/17 11:05 01/12/17 11:05 <Rosie Garza - Last Filed: 01/12/17 14:18> ED Treatment Course - LABORATORY CBC & Chemistry Diagram: 01/12/17 12:55 01/12/17 12:55 - ADDITIONAL ORDERS Additional order review: Laboratory Results 01/12/17 01/12/17 01/12/17 13:05 12:55 12:55 Sodium Potassium Chloride Carbon Dioxide Anion Gap BUN Creatinine Creat Clearance w eGFR Random Glucose Lactic Acid 0.9 Calcium Phosphorus 2.7 D Total Bilirubin AST ALT Alkaline Phosphatase Total Protein Albumin Urine Color Love Urine Appearance Clear Urine pH 5.0 Ur Specific [place] 1.008 Urine Protein Negative Urine Glucose (UA) Negative Urine Ketones Negative Urine Blood Negative Urine Nitrite Negative Urine Bilirubin Negative Urine Urobilinogen 4.0 e.u/dl 01/12/17 12:55 Sodium 141 Potassium 3.5 Chloride 106 Carbon Dioxide 28 Anion Gap 7 L BUN 10 Creatinine 0.6 L D Creat Clearance w eGFR > 60 Random Glucose 86 D Lactic Acid Calcium 8.5 Phosphorus Total Bilirubin 2.2 H AST 85 H D ALT 131 H D Alkaline Phosphatase 686 H D Total Protein 5.6 L Albumin 2.9 L Urine Color Urine Appearance Urine pH Ur Specific [place] Urine Protein Urine Glucose (UA) Urine Ketones Urine Blood Urine Nitrite Urine Bilirubin Urine Urobilinogen 01/12/17 12:55 RBC 3.28 L MCV 88.1 MCHC 33.8 RDW 19.9 H MPV 7.5 Neutrophils % 67.2 D Lymphocytes % 15.0 D Monocytes % 15.3 H Eosinophils % 2.1 D Basophils % 0.4 - Medications Given in the ED: ED Medications Discontinued Medications Generic Name Dose Route Start Last Admin Trade Name Freq PRN Reason Stop Dose Admin Piperacillin Sod/Tazobactam 100 mls @ 200 mls/hr 01/12/17 12:50 01/12/17 13: 29 Sod 4.5 gm/ Dextrose IVPB 01/12/17 13:19 200 mls/hr ONCE ONE Administration Protocol <Sylvester Orozco - Last Filed: 01/12/17 13:52> - LABORATORY CBC & Chemistry Diagram: 01/12/17 12:55 01/12/17 12:55 <Rosie Garza - Last Filed: 01/12/17 14:18> Medical Decision Making - Medical Decision Making 01/12/17 14:13 71-year-old male with a history of pancreatic cancer on chemotherapy presents with positive blood cultures drawn yesterday that have grown Escherichia coli. Had a fever and vomiting yesterday that have resolved. Patient has a recent history of Escherichia coli bacteremia and since he is on chemotherapy, he is especially immunocompromised. Currently he is hemodynamically stable, will give dose of Zosyn upfront and redraw blood cultures, do an infectious workup, and admit to Dr. Muniz for further management. Case discussed in detail with admitting physician including history, physical exam and ancillary studies. Admitting physician has assumed care for the patient, will follow all pending diagnostics and will complete the evaluation and treatment. <Rosie Garza - Last Filed: 01/12/17 14:18> *DC/Admit/Observation/Transfer - Attestations Scribe Attestion: 01/12/17 13:53 Documentation prepared by Sylvester Orozco, acting as center medical director for Rosie Garza MD. <ColleenySylvester - Last Filed: 01/12/17 13:52> - Discharge Dispostion Admit: Yes - Transfer to Acute Care Facility Transfer comment: 01/12/17 14:18 I, Dr. Rosie Garza MD, attest that this document has been prepared under my direction and personally reviewed by me in its entirety. I further attest, that it accurately reflects all work, treatment, procedures and medical decision -making performed by me. <Rosie Garza - Last Filed: 01/12/17 14:18> Diagnosis at time of Disposition: Bacteremia - Discharge Dispostion Condition at time of disposition: Stable - Referrals Referrals: Freedom Muniz MD [Primary Care Provider] - - Patient Instructions - Post Discharge Activity
[2017-01-12] MEDS ORDERED: PIPERACILLIN/TAZOB 4.5 GM 4.5 GM in DEXTROSE 5%-WATER - 100 ML IVPB ONE (12:50)
[2017-01-12] MEDS ORDERED: PIPERACILLIN/TAZOB 4.5 GM 4.5 GM/100 ML BAG IVPB ONE (13:12)
[2017-01-12 13:21] LABS: BASOPHIL 0.4 % (0-2.0); EOSINOPHIL 2.1 % (0-4.5); MCH 29.8 pg (25.7-33.7); MCHC 33.8 g/dl (32.0-35.9); MEAN CELL VOLUME 88.1 fl (80-96); MEAN PLT VOLUME 7.5 fl (7.5-11.1); NEUTROPHILS 67.2 % (42.8-82.8); PLATELET COUNT 195 K/MM3 (134-434); RDW 19.9 % (11.9-15.9); WHITE BLOOD COUNT 7.1 K/mm3 (4.0-10.0)
[2017-01-12 13:34] LABS: URINE APPEARANCE CLEAR; URINE BILIRUBIN NEGATIVE (NEGATIVE); URINE BLOOD NEGATIVE (NEGATIVE); URINE COLOR AMBER; URINE GLUCOSE (UA) NEGATIVE (NEGATIVE); URINE KETONE NEGATIVE (NEGATIVE); URINE NITRITE NEGATIVE (NEGATIVE); URINE PROTEIN NEGATIVE (NEGATIVE); URINE UROBILINOGEN 4.0 E.U/dl mg/dL (0.2-1.0)
[2017-01-12 13:42] LABS: ALBUMIN 2.9 g/dl (3.4-5.0); ALK PHOS 686 U/L (45-117); ANION GAP 7 (8-16); BILIRUBIN,TOTAL 2.2 mg/dL (0.2-1.0); CALCIUM 8.5 mg/dL (8.5-10.1); CO2 28 mmol/L (21-32); CREATININE 0.6 mg/dL (0.7-1.3); GLUCOSE,RANDOM 86 mg/dL (74-106); SGOT/AST 85 U/L (15-37); SGPT/ALT 131 U/L (12-78); TOT PROT 5.6 g/dl (6.4-8.2)
[2017-01-12] MEDS ORDERED: SODIUM CHLORIDE 0.9% 500 ML INFUS.BAG IV ONE (14:47)
--- NOTE | 2017-01-12 16:06 | PN ---
Progress Note (short form) - Note Progress Note: ID Consult dictated Recurrent gram negative bacteremia/ sepsis Pancreatic ca on chemo Await culture results Empiric zosyn 4.5gm IVPB q8h
[2017-01-12] MEDS ORDERED: PIPERACILLIN/TAZOB 4.5 GM 4.5 GM/100 ML BAG IVPB SCH (16:15)
[2017-01-12 16:50] LABS: URINE LEUK ESTERASE Negative (NEGATIVE)
[2017-01-12 17:48] VITALS: BMI 26.2
[2017-01-12] MEDS ORDERED: PNEUMOC 13-VAL CONJ-DIP CRM/PF 0.5 ML DISP.SYRIN IM ONE (17:54)
[2017-01-12] MEDS ORDERED: PIPERACIL/TAZOB 3.375 GM 3.375 GM/50 ML PREMIX IVPB SCH (19:00)
[2017-01-12] MEDS ORDERED: DOCUSATE SODIUM 100 MG CAPSULE (FP) PO PRN (19:01)
--- NOTE | 2017-01-12 20:31 | HP ---
Admitting History and Physical - Primary Care Physician PCP: Freedom Muniz - Admission Chief Complaint: Bacteremia History of Present Illness: 71 y/o male with locally advanced pancreatic adenocarcinoma who underwent placement of CBD stent in the past is admitted as blood cultures taken yesterday at [facility] grew ECOLI. He was seen in the ED at [facility] last night and blood cultures were taken peripheral and so far no growth. As per patient cultures were taken from the [facility]. He was admitted two months ago for ECOLI bacteremia . He has been getting chemotherapy with Gemcitabine and Oxalooplatin - Past Medical History Cardiovascular: Yes: HTN, Hyperlipdemia Gastrointestinal: Yes: Hemorrhoids Renal/: Yes: Cancer Heme/Onc: Yes: Current Chemotherapy - Past Surgical History Past Surgical History: Yes: Bypass (gastrojejunostomy), Colonoscopy - Smoking History Smoking history: Former smoker Have you smoked in the past 12 months: No If you are a former smoker, when did you quit?: 2009 - Alcohol/Substance Use Hx Alcohol Use: Yes (WINE SOMETIMES) History of Substance Use: reports: None - Social History ADL: Independent History of Recent Travel: No Home Medications - Allergies Allergies/Adverse Reactions: Allergies Allergy/AdvReac Type Severity Reaction Status Date / Time No Known Allergies Allergy Verified 01/12/17 11:08 - Home Medications Home Medications: Ambulatory Orders Lisinopril 20 mg PO BID 02/25/15 Docusate Sodium [Colace -] 100 mg PO DAILY 11/01/16 Sennosides [Senna] 8.6 mg PO DAILY 11/01/16 Tamsulosin HCl [Flomax] 0.4 mg PO HS 11/01/16 Atorvastatin Ca [Lipitor] 20 mg PO HS tablet 11/07/16 Rivaroxaban [Xarelto -] 20 mg PO HS tablet 11/07/16 Levofloxacin [Levaquin -] 500 mg PO DAILY #10 tablet 01/12/17 Family Disease History - Family Disease History Family Disease History: Other: Father (prostate carcinoma at 74) Physical Examination Vital Signs: Vital Signs Temperature 97.7 F 01/12/17 17:00 Pulse Rate 78 01/12/17 17:00 Respiratory Rate 20 01/12/17 17:00 Blood Pressure 122/70 01/12/17 17:00 O2 Sat by Pulse Oximetry (%) 98 01/12/17 17:00 Labs: CBC, BMP 01/12/17 12:55 01/12/17 12:55 Problem List - Problems (1) Bacteremia Assessment/Plan: He had blood cultures taken from [facility] which grew EColi but blood cultures from peripheral blood taken at [facility] ED were negative. Being treated with Zosyn and Levaquin. Code(s): R78.81 - BACTEREMIA (2) Adenocarcinoma of pancreas Assessment/Plan: Has locally advanced adenocarcinoma pancreas and is being treated with Gemcitabine and Oxaloplatin as per patient. Code(s): C25.9 - MALIGNANT NEOPLASM OF PANCREAS, UNSPECIFIED (3) HTN (hypertension) Code(s): I10 - ESSENTIAL (PRIMARY) HYPERTENSION Qualifiers: Hypertension type: secondary to endocrine disorders Qualified Code(s): I15.2 - Hypertension secondary to endocrine disorders (4) Benign prostate hyperplasia Assessment/Plan: On Tamsulosin and doing well Code(s): N40.0 - BENIGN PROSTATIC HYPERPLASIA WITHOUT LOWER URINRY TRACT SYMP (5) Abnormal LFTs Code(s): R79.89 - OTHER SPECIFIED ABNORMAL FINDINGS OF BLOOD CHEMISTRY Assessment/Plan Bacteremia with EColi being treated with Zosyn and Levaquin pending C/S. Second episode with same type of organism. Source to be ascertained. Elevated LFT's: Ultrasound does not show any obstruction, intrahepatic mets? suggestive of progression of metastatic disease?
[2017-01-12] MEDS: PIPERACILLIN/TAZOB 4.5 GM 4.5 GM in DEXTROSE 5%-WATER - 100 ML IVPB SCH (21:15)
[2017-01-12] MEDS: RIVAROXABAN 20 MG TABLET PO SCH (21:25)
[2017-01-12] MEDS: TAMSULOSIN HCL 0.4 MG CAP.ER.24H (FP) PO SCH (21:25)
[2017-01-12] MEDS: LEVOFLOXACIN 500 MG IVPB 500 MG/100 ML BAG IVPB SCH (21:25)
[2017-01-12] MEDS: LISINOPRIL 10 MG TABLET (FP) PO SCH ×2 (21:25→22:41)
--- NOTE | 2017-01-13 00:22 | CONS ---
DATE OF CONSULTATION: DATE OF DICTATION: 01/12/2017 INFECTIOUS DISEASE CONSULTATION HISTORY OF PRESENT ILLNESS: The patient is a 71-year-old with a history of pancreatic cancer on chemotherapy evaluated for positive blood cultures. Patient states he was doing well until 1 week prior to admission. He developed nausea and vomiting after eating a meal. He also noted low-grade temperature. He had presented to his provider at [facility] where he was evaluated . Blood cultures were obtained at that time. He was called by his providers at [facility] that blood cultures were positive for gram-negative rods. At the present time, he complains of generalized weakness. He has no complaints of abdominal pain at the present time. No recurrent nausea or vomiting. Patient was admitted to [facility] in October of 2016 at which time blood cultures were positive for E. coli. He received a 7-day course of IV antibiotic therapy followed by a 7-day course of oral therapy at the time the suspected source was his biliary tract, as he has a biliary stent in place. The patient also has a port present in the right chest area. He denies any pain or tenderness at the site. No reports of erythema. PAST MEDICAL HISTORY: Positive for pancreatic cancer diagnosed in February of 2015. History of chemotherapy last cycle of which was January 03, 2017. He had previously been on Gemzar and Taxol; however, the Taxol was discontinued because of peripheral neuropathy. Past medical history also includes hypertension and hyperlipidemia. PAST SURGICAL HISTORY: Status post biliary stent October 28, 2016, IVC filter, and Mediport. ALLERGIES: No known allergies. MEDICATION: Lisinopril, Colace, Flomax, Lipitor, Xarelto, Levaquin. SOCIAL HISTORY: Lives at home with his significant other. He is a former smoker . SYSTEMS REVIEW: Neurologic: No loss of consciousness, seizure activity, or focal weakness. Cardiac: Negative chest pain or palpitations. Respiratory: Negative cough or sputum production. Gastrointestinal: As per HPI. Genitourinary: Negative for urinary tract infection. LABORATORY DATA: White count 7.1, 67 neutrophils, 15 lymphocytes, 15 monocytes, hematocrit 28.9, platelet count 195, BUN 10, creatinine 0.6, total bilirubin 2.2, alkaline phosphatase 686, AST 85. Urinalysis and culture pending. Blood cultures pending. Chest x-ray negative for acute infiltrate. PHYSICAL EXAMINATION: General: He is awake. He is weak appearing. However, not acutely toxic. Vital signs: Temperature 97.5, blood pressure 136/74 pulse 71 regular, respirations 18 per minute. HEENT: Sclerae icteric. Dry mucous membranes. Cardiovascular: Heart sounds S1, S2. Respiratory: Lungs clear. Abdomen: Soft. No epigastric or right upper quadrant tenderness elicited. Extremities: Positive for edema. IMPRESSION: 1. Recurrent gram-negative bacteremia/sepsis. 2. Pancreatic cancer on chemotherapy. 3. Recent history of Escherichia coli. . Await culture results. piggyback every 8 hours. Further recommendations pending culture results. Will follow. Thank you for the kind referral. MAXWELL GOLDSTEIN M.D. TERA/[id number]
[2017-01-13] MEDS: PIPERACILLIN/TAZOB 4.5 GM 4.5 GM in DEXTROSE 5%-WATER - 100 ML IVPB SCH ×3 (03:06→17:17)
[2017-01-13 07:17] LABS: BASOPHIL 0.4 % (0-2.0); EOSINOPHIL 2.9 % (0-4.5); MCHC 34.1 g/dl (32.0-35.9); MEAN CELL VOLUME 88.1 fl (80-96); MEAN PLT VOLUME 7.8 fl (7.5-11.1); NEUTROPHILS 63.1 % (42.8-82.8); PLATELET COUNT 223 K/MM3 (134-434); RDW 19.9 % (11.9-15.9); WHITE BLOOD COUNT 6.3 K/mm3 (4.0-10.0)
[2017-01-13 07:43] LABS: ALBUMIN 2.7 g/dl (3.4-5.0); ALK PHOS 721 U/L (45-117); ANION GAP 5 (8-16); CALCIUM 8.3 mg/dL (8.5-10.1); CO2 30 mmol/L (21-32); GLUCOSE,RANDOM 97 mg/dL (74-106); SGOT/AST 105 U/L (15-37)
[2017-01-13 07:51] LABS: BILIRUBIN,TOTAL 4.4 mg/dL (0.2-1.0); CREATININE 0.6 mg/dL (0.7-1.3); SGPT/ALT 130 U/L (12-78); TOT PROT 5.6 g/dl (6.4-8.2)
[2017-01-13] MEDS ORDERED: PT OWN MED DRAWER 7, Y5N ONE ×2 (10:39→17:14)
[2017-01-13] MEDS: LEVOFLOXACIN 500 MG IVPB 500 MG/100 ML BAG IVPB SCH (10:40)
[2017-01-13] MEDS: LISINOPRIL 10 MG TABLET (FP) PO SCH ×2 (10:41→21:12)
--- NOTE | 2017-01-13 11:09 | PN ---
Progress Note, Physician History of Present Illness: Feeling better No c/o abdominal pain No N/V No c/o fever/ chills Afebrile WBC WNL BC (prelim ) no growth Urine c/s (-) LFTs, lipase elevated - Current Medication List Current Medications: Active Medications Docusate Sodium (Colace -) 100 mg PO BID PRN PRN Reason: CONSTIPATION Piperacillin Sod/Tazobactam (Sod 4.5 gm/ Dextrose) 100 mls @ 200 mls/hr IVPB Q8H-IV [facility] Last Admin: 01/13/17 03:06 Dose: 200 mls/hr Levofloxacin (Levaquin 500 Mg Premixed Ivpb -) 500 mg in 100 mls @ 100 mls/hr IVPB DAILY@0800 [facility] Last Admin: 01/13/17 10:40 Dose: 100 mls/hr Lisinopril (Prinivil) 10 mg PO BID [facility] Last Admin: 01/13/17 10:41 Dose: 10 mg Rivaroxaban (Xarelto -) 20 mg PO DAILY@1800 [facility] Last Admin: 01/12/17 21:25 Dose: 20 mg Tamsulosin HCl (Flomax -) 0.4 mg PO HS [facility] Last Admin: 01/12/17 21:25 Dose: 0.4 mg - Objective Vital Signs: Vital Signs Temperature 97.9 F 01/13/17 06:00 Pulse Rate 73 01/13/17 06:00 Respiratory Rate 18 01/13/17 06:00 Blood Pressure 124/75 01/13/17 06:00 O2 Sat by Pulse Oximetry (%) 97 01/12/17 21:00 Constitutional: Yes: No Distress Eyes: Yes: Conjunctiva Clear Cardiovascular: Yes: Regular Rate and Rhythm Respiratory: Yes: CTA Bilaterally Gastrointestinal: Yes: Normal Bowel Sounds, Soft. No: Tenderness Edema: Yes Integumentary: Yes: Other (port site no erythema) Labs: CBC, BMP 01/13/17 06:45 01/13/17 06:45 Assessment/Plan Recurrent gram negative bacteremia ? biliary tract focus ? port Suspect former as LFTs rising Pancreatic ca S/P biliary stent Continue zosyn I have put a call into Dr. Etienne at [facility] to obtain + blood c/s result GI evaluation
[2017-01-13] MEDS: RIVAROXABAN 20 MG TABLET PO SCH (17:17)
[2017-01-13] MEDS ORDERED: SIMETHICONE 80 MG TAB.CHEW (FP) PO ONE (17:30)
--- NOTE | 2017-01-13 17:58 | CON.GI ---
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 Subsequent MRCP revealed a large cystic mass. He is currently on chemo and being followed at [facility]. He had a biliary stent placed and has a port. He states he developed a lowgrade fever and called [facility]. They did BC and sent him home. He was later notified that he had gm neg bacteremia and was told to come to the ER which he did. . He had no pain on admission and BC currently negative x 24h - History Source History Provided By: Patient, Medical Record Limitations to Obtaining History: No Limitations - Past Medical History Cardio/Vascular: Yes: HTN, Hyperlipdemia Gastrointestinal: Yes: Hemorrhoids Renal/: Yes: Cancer - Past Surgical History Past Surgical History: Yes: Bypass (gastrojejunostomy), Colonoscopy - Alcohol/Substance Use Hx Alcohol Use: Yes (WINE SOMETIMES) History of Substance Use: reports: None - Smoking History Smoking history: Former smoker Have you smoked in the past 12 months: No If you are a former smoker, when did you quit?: 2009 - Social History Usual Living Arrangement: With Spouse ADL: Independent History of Recent Travel: No Home Medications - Allergies Allergies/Adverse Reactions: Allergies Allergy/AdvReac Type Severity Reaction Status Date / Time No Known Allergies Allergy Verified 01/12/17 11:08 - Home Medications Home Medications: Ambulatory Orders Lisinopril 20 mg PO BID 02/25/15 Docusate Sodium [Colace -] 100 mg PO DAILY 11/01/16 Sennosides [Senna] 8.6 mg PO DAILY 11/01/16 Tamsulosin HCl [Flomax] 0.4 mg PO HS 11/01/16 Atorvastatin Ca [Lipitor] 20 mg PO HS tablet 11/07/16 Rivaroxaban [Xarelto -] 20 mg PO HS tablet 11/07/16 Levofloxacin [Levaquin -] 500 mg PO DAILY #10 tablet 01/12/17 Family Disease History - Family Disease History Family Disease History: Other: Father (prostate carcinoma at 74) Physical Exam-GI Vital Signs: Vital Signs Temperature 97.5 F L 01/13/17 14:20 Pulse Rate 83 12/01/17 14:20 Respiratory Rate 20 01/13/17 14:20 Blood Pressure 120/76 01/13/17 14:20 O2 Sat by Pulse Oximetry (%) 97 01/12/17 21:00 Constitutional: Yes: Well Nourished, No Distress Cardiovascular: Yes: Regular Rate and Rhythm Respiratory: Yes: CTA Bilaterally ...Auscultate: Yes: Normoactive Bowel Sounds ...Palpate: Yes: Soft. No: Tenderness Labs: CBC, BMP 01/13/17 06:45 01/13/17 06:45 Hepatic Panel Total Bilirubin 4.4 mg/dL (0.2-1.0) H D 01/13/17 06:45 AST 105 U/L (15-37) H D 01/13/17 06:45 ALT 130 U/L (12-78) H 01/13/17 06:45 Alkaline Phosphatase 721 U/L (45-117) H 01/13/17 06:45 Albumin 2.7 g/dl (3.4-5.0) L 01/13/17 06:45 Abnormal Lab Results 01/12/17 01/13/17 01/13/17 12:55 06:45 06:45 RBC 3.31 L Hgb 9.9 L Hct 29.2 L RDW 19.9 H Monocytes % 12.0 H Potassium 3.4 L Anion Gap 7 L 5 L BUN 5 L D Creatinine 0.6 L D 0.6 L Calcium 8.3 L Total Bilirubin 2.2 H 4.4 H D AST 85 H D 105 H D ALT 131 H D 130 H Alkaline Phosphatase 686 H D 721 H Total Protein 5.6 L 5.6 L Albumin 2.9 L 2.7 L Lipase 684 H Imaging - Results Ultrasound: Report Reviewed (done 01/11 shows no biliary dilatation) Assessment/Plan Patient on chemo states that 2 days ago he had a very low WBC when checked at [facility], now with WBC of 6.3 which may be high in the context of neutropenia. He is completely comfortable and has no tenderness. Likely malignant obstruction of stent or intrahepatic biliary obstruction. Follow LFTs to trend. will get MRI/MRCP to assess status of Ca (Check CA19-9 although low earlier) Possibly intra-hepatic obstruction as extra-hepatic ducts normal caliber on U/S 2 days ago Clear liquid diet
[2017-01-13] MEDS: TAMSULOSIN HCL 0.4 MG CAP.ER.24H (FP) PO SCH (21:12)
--- NOTE | 2017-01-13 22:39 | PN ---
Progress Note, Physician History of Present Illness: Denies any shaking chills, N/V or any abdominal pain. Feels better since admission. - Current Medication List Current Medications: Active Medications Docusate Sodium (Colace -) 100 mg PO BID PRN PRN Reason: CONSTIPATION Piperacillin Sod/Tazobactam (Sod 4.5 gm/ Dextrose) 100 mls @ 200 mls/hr IVPB Q8H-IV [facility] Last Admin: 01/13/17 17:17 Dose: 200 mls/hr Levofloxacin (Levaquin 500 Mg Premixed Ivpb -) 500 mg in 100 mls @ 100 mls/hr IVPB DAILY@0800 [facility] Last Admin: 01/13/17 10:40 Dose: 100 mls/hr Lisinopril (Prinivil) 10 mg PO BID [facility] Last Admin: 01/13/17 21:12 Dose: 10 mg Rivaroxaban (Xarelto -) 20 mg PO DAILY@1800 [facility] Last Admin: 01/13/17 17:17 Dose: 20 mg Tamsulosin HCl (Flomax -) 0.4 mg PO HS [facility] Last Admin: 01/13/17 21:12 Dose: 0.4 mg - Objective Vital Signs: Vital Signs Temperature 98.1 F 01/13/17 18:00 Pulse Rate 79 01/13/17 18:00 Respiratory Rate 20 01/13/17 18:00 Blood Pressure 128/74 01/13/17 18:00 O2 Sat by Pulse Oximetry (%) 95 01/13/17 09:00 Constitutional: Yes: Well Nourished, No Distress, Calm Eyes: Yes: WNL HENT: Yes: WNL Neck: Yes: WNL Cardiovascular: Yes: Regular Rate and Rhythm, S1 Respiratory: Yes: Regular, CTA Bilaterally Gastrointestinal: Yes: Normal Bowel Sounds, Soft Genitourinary: Yes: WNL Breast(s): Yes: WNL Musculoskeletal: Yes: WNL Extremities: Yes: Internal Rotation Edema: No Peripheral Pulses WNL: Yes Integumentary: Yes: WNL Neurological: Yes: Alert, Oriented ...Motor Strength: WNL Psychiatric: Yes: Alert, Oriented Labs: CBC, BMP 01/13/17 06:45 01/13/17 06:45 - ....Imaging X-ray: Report Reviewed Ultrasound: Report Reviewed Problem List - Problems (1) Bacteremia Assessment/Plan: He has been afebrile since admission.Blood cultures drawn inn the ED of [facility] have been negative. Pateinet claims that blood cultures drawn at [facility] were taken from the [facility]axath Code(s): R78.81 - BACTEREMIA (2) Abnormal LFTs Assessment/Plan: LFT elevation is indicative of obstruction.US of abd did not show any intrahepatic mets. Code(s): R79.89 - OTHER SPECIFIED ABNORMAL FINDINGS OF BLOOD CHEMISTRY (3) Adenocarcinoma of pancreas Code(s): C25.9 - MALIGNANT NEOPLASM OF PANCREAS, UNSPECIFIED (4) HTN (hypertension) Assessment/Plan: Carcinoma remains localizec so far Code(s): I10 - ESSENTIAL (PRIMARY) HYPERTENSION Qualifiers: Hypertension type: secondary to endocrine disorders Qualified Code(s): I15.2 - Hypertension secondary to endocrine disorders Assessment/Plan Will cont Zosyn and Levaquin till c/s is known from [facility] oncologist..
[2017-01-14] MEDS: PIPERACILLIN/TAZOB 4.5 GM 4.5 GM in DEXTROSE 5%-WATER - 100 ML IVPB SCH ×3 (01:47→18:15)
[2017-01-14 07:31] LABS: BASOPHIL 0.6 % (0-2.0); EOSINOPHIL 1.6 % (0-4.5); MCHC 34.1 g/dl (32.0-35.9); MEAN CELL VOLUME 87.9 fl (80-96); MEAN PLT VOLUME 7.9 fl (7.5-11.1); NEUTROPHILS 70.4 % (42.8-82.8); PLATELET COUNT 302 K/MM3 (134-434); RDW 19.6 % (11.9-15.9); WHITE BLOOD COUNT 6.9 K/mm3 (4.0-10.0)
[2017-01-14 07:36] LABS: ALBUMIN 2.9 g/dl (3.4-5.0); ANION GAP 10 (8-16); BILIRUBIN,TOTAL 5.4 mg/dL (0.2-1.0); CALCIUM 8.7 mg/dL (8.5-10.1); CO2 28 mmol/L (21-32); CREATININE 0.6 mg/dL (0.7-1.3); GLUCOSE,RANDOM 88 mg/dL (74-106); SGOT/AST 130 U/L (15-37); SGPT/ALT 143 U/L (12-78)
[2017-01-14 07:37] LABS: ALK PHOS 773 U/L (45-117); TOT PROT 5.8 g/dl (6.4-8.2)
[2017-01-14] MEDS: LEVOFLOXACIN 500 MG IVPB 500 MG/100 ML BAG IVPB SCH (09:58)
[2017-01-14] MEDS: LISINOPRIL 10 MG TABLET (FP) PO SCH ×2 (11:02→21:14)
--- NOTE | 2017-01-14 11:48 | PN ---
Progress Note, Physician History of Present Illness: Feeling better No c/o abdominal pain No N/V No c/o fever/ chills Afebrile WBC WNL BC (prelim ) no growth Urine c/s (-) LFTs trending upward - Current Medication List Current Medications: Active Medications Docusate Sodium (Colace -) 100 mg PO BID PRN PRN Reason: CONSTIPATION Piperacillin Sod/Tazobactam (Sod 4.5 gm/ Dextrose) 100 mls @ 200 mls/hr IVPB Q8H-IV [facility] Last Admin: 01/14/17 11:02 Dose: 200 mls/hr Levofloxacin (Levaquin 500 Mg Premixed Ivpb -) 500 mg in 100 mls @ 100 mls/hr IVPB DAILY@0800 [facility] Last Admin: 01/14/17 09:58 Dose: 100 mls/hr Lisinopril (Prinivil) 10 mg PO BID [facility] Last Admin: 01/14/17 11:02 Dose: 10 mg Rivaroxaban (Xarelto -) 20 mg PO DAILY@1800 [facility] Last Admin: 01/13/17 17:17 Dose: 20 mg Tamsulosin HCl (Flomax -) 0.4 mg PO HS [facility] Last Admin: 01/13/17 21:12 Dose: 0.4 mg - Objective Vital Signs: Vital Signs Temperature 98.1 F 01/14/17 06:00 Pulse Rate 83 01/14/17 06:00 Respiratory Rate 20 01/14/17 06:00 Blood Pressure 135/84 01/14/17 06:00 O2 Sat by Pulse Oximetry (%) 95 01/13/17 09:00 Constitutional: Yes: No Distress, Other (Non-toxic appearing) Eyes: Yes: Conjunctiva Clear Cardiovascular: Yes: Regular Rate and Rhythm, S1, S2 Respiratory: Yes: CTA Bilaterally Gastrointestinal: Yes: Normal Bowel Sounds, Soft, Other (no abdominal tenderness ) Edema: No Labs: CBC, BMP 01/14/17 06:45 01/14/17 06:45 Assessment/Plan Recurrent gram negative bacteremia probable biliary tract focus Pancreatic ca S/P biliary stent Continue zosyn For MRCP
[2017-01-14] MEDS: RIVAROXABAN 20 MG TABLET PO SCH (18:15)
--- NOTE | 2017-01-14 20:15 | PN ---
GI Progress Note Subjective: Patient comfortable in bed. No pain and no complaint. Looks well Today's labs with ongoing increase in LFT's. T bili now 5.4 - Objective Vital Signs: Vital Signs Temperature 98.2 F 01/14/17 15:27 Pulse Rate 85 01/14/17 15:27 Respiratory Rate 20 01/14/17 15:27 Blood Pressure 133/78 01/14/17 15:27 O2 Sat by Pulse Oximetry (%) 95 01/14/17 09:00 Constitutional: Well Nourished, No Distress Cardiovascular: Yes: Regular Rate and Rhythm Respiratory: Yes: CTA Bilaterally Gastrointestinal Inspection: Yes: WNL ...Auscultate: Yes: Normoactive Bowel Sounds ...Palpate: Yes: Soft. No: Tenderness ...Percussion: Yes: Dullness Labs: CBC, BMP 01/14/17 06:45 01/14/17 06:45 Hepatic Panel Total Bilirubin 5.4 mg/dL (0.2-1.0) H D 01/14/17 06:45 AST 130 U/L (15-37) H D 01/14/17 06:45 ALT 143 U/L (12-78) H 01/14/17 06:45 Alkaline Phosphatase 773 U/L (45-117) H 01/14/17 06:45 Albumin 2.9 g/dl (3.4-5.0) L 01/14/17 06:45 - ....Imaging Cat Scan: Report Reviewed (No intra- or extrahepatic bile duct dilatation.) Assessment/Plan Recent HIDA shows patency of wall stent. No ductal dilatation and no pain all suggest increasing LFTs are secondary to malignant infiltration of liver. Discussed with Dr Lang. Decision made to transfer to [facility] for further evaluation and treatment. Will transfer in AM
[2017-01-14] MEDS ORDERED: POTASSIUM CHLORIDE TABS 20 MEQ TABLET.ER (FP) PO ONE ×3 (20:18→21:30)
--- NOTE | 2017-01-14 21:04 | PN ---
Progress Note, Physician History of Present Illness: Case discussed with . Patient denies any abdominal pain ,N/V or shaking chills. - Current Medication List Current Medications: Active Medications Docusate Sodium (Colace -) 100 mg PO BID PRN PRN Reason: CONSTIPATION Piperacillin Sod/Tazobactam (Sod 4.5 gm/ Dextrose) 100 mls @ 200 mls/hr IVPB Q8H-IV [facility] Last Admin: 01/14/17 18:15 Dose: 200 mls/hr Levofloxacin (Levaquin 500 Mg Premixed Ivpb -) 500 mg in 100 mls @ 100 mls/hr IVPB DAILY@0800 [facility] Last Admin: 01/14/17 09:58 Dose: 100 mls/hr Lisinopril (Prinivil) 10 mg PO BID [facility] Last Admin: 01/14/17 11:02 Dose: 10 mg Rivaroxaban (Xarelto -) 20 mg PO DAILY@1800 [facility] Last Admin: 01/14/17 18:15 Dose: 20 mg Tamsulosin HCl (Flomax -) 0.4 mg PO HS [facility] Last Admin: 01/13/17 21:12 Dose: 0.4 mg - Objective Vital Signs: Vital Signs Temperature 98.4 F 01/14/17 18:00 Pulse Rate 86 01/14/17 18:00 Respiratory Rate 20 01/14/17 18:00 Blood Pressure 138/77 01/14/17 18:00 O2 Sat by Pulse Oximetry (%) 95 01/14/17 09:00 Constitutional: Yes: No Distress, Calm Eyes: Yes: WNL HENT: Yes: WNL Neck: Yes: Supple Cardiovascular: Yes: Regular Rate and Rhythm, S1, S2 Respiratory: Yes: Regular, CTA Bilaterally Gastrointestinal: Yes: Normal Bowel Sounds, Soft Genitourinary: Yes: WNL, Incontinence Breast(s): Yes: WNL Musculoskeletal: Yes: WNL Extremities: Yes: WNL Edema: No Peripheral Pulses WNL: Yes Integumentary: Yes: WNL Neurological: Yes: Alert, Oriented, Cran Nerves II-XII Intact, Lethargy ...Motor Strength: WNL Psychiatric: Yes: Alert, Oriented Labs: CBC, BMP 01/14/17 06:45 01/14/17 06:45 - ....Imaging Ultrasound: Report Reviewed, Image Reviewed Problem List - Problems (1) Bacteremia Assessment/Plan: Remains afebrile on Zosyn and Levaquin Code(s): R78.81 - BACTEREMIA (2) Abnormal LFTs Assessment/Plan: Bilirubin and enzymes more elevated suggestive of obstructive disease probably intrahepatic as ultrasound doesn't show any dilatation of ducts Code(s): R79.89 - OTHER SPECIFIED ABNORMAL FINDINGS OF BLOOD CHEMISTRY (3) Adenocarcinoma of pancreas Code(s): C25.9 - MALIGNANT NEOPLASM OF PANCREAS, UNSPECIFIED (4) HTN (hypertension) Code(s): I10 - ESSENTIAL (PRIMARY) HYPERTENSION Qualifiers: Hypertension type: secondary to endocrine disorders Qualified Code(s): I15.2 - Hypertension secondary to endocrine disorders Assessment/Plan Casew discussed with KAPIL Leong who feels patient should be transferred to [facility] for further management as LFT's are more elevated
[2017-01-14] MEDS: TAMSULOSIN HCL 0.4 MG CAP.ER.24H (FP) PO SCH (21:14)
[2017-01-15] MEDS: PIPERACILLIN/TAZOB 4.5 GM 4.5 GM in DEXTROSE 5%-WATER - 100 ML IVPB SCH ×3 (01:17→17:33)
[2017-01-15] MEDS: LEVOFLOXACIN 500 MG IVPB 500 MG/100 ML BAG IVPB SCH (08:08)
[2017-01-15] MEDS: LISINOPRIL 10 MG TABLET (FP) PO SCH ×2 (09:53→21:09)
--- NOTE | 2017-01-15 13:21 | PN ---
GI Progress Note Subjective: Patient continues to feel well Labs pending - Objective Vital Signs: Vital Signs Temperature 97.8 F 01/15/17 09:22 Pulse Rate 85 01/15/17 09:22 Respiratory Rate 18 01/15/17 09:22 Blood Pressure 144/97 01/15/17 09:22 O2 Sat by Pulse Oximetry (%) 97 01/15/17 09:00 Constitutional: Well Nourished, No Distress HENT: Yes: Normocephalic Neck: Yes: Supple Cardiovascular: Yes: Regular Rate and Rhythm Respiratory: Yes: CTA Bilaterally Gastrointestinal Inspection: Yes: WNL ...Auscultate: Yes: Normoactive Bowel Sounds ...Palpate: Yes: Soft. 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 No ductal dilatation and no pain all suggest increasing LFTs are secondary to malignant infiltration of liver. Discussed with Dr Lang. Decision made to transfer to [facility] for further evaluation and treatment. Will transfer today after BW done
[2017-01-15 13:48] LABS: BASOPHIL 0.6 % (0-2.0); EOSINOPHIL 1.1 % (0-4.5); MCH 29.4 pg (25.7-33.7); MCHC 33.1 g/dl (32.0-35.9); MEAN CELL VOLUME 88.8 fl (80-96); MEAN PLT VOLUME 7.6 fl (7.5-11.1); NEUTROPHILS 73.9 % (42.8-82.8); PLATELET COUNT 403 K/MM3 (134-434); RDW 20.2 % (11.9-15.9); WHITE BLOOD COUNT 6.8 K/mm3 (4.0-10.0)
[2017-01-15 14:03] LABS: ALBUMIN 2.7 g/dl (3.4-5.0); BILIRUBIN,TOTAL 5.7 mg/dL (0.2-1.0); CALCIUM 8.9 mg/dL (8.5-10.1); CO2 31 mmol/L (21-32); CREATININE 0.9 mg/dL (0.7-1.3); GLUCOSE,RANDOM 160 mg/dL (74-106); SGOT/AST 149 U/L (15-37); SGPT/ALT 161 U/L (12-78); TOT PROT 5.7 g/dl (6.4-8.2)
[2017-01-15 14:06] LABS: ALK PHOS 763 U/L (45-117); ANION GAP 6 (8-16)
[2017-01-15] MEDS: RIVAROXABAN 20 MG TABLET PO SCH (17:33)
[2017-01-15] MEDS ORDERED: FENTANYL PATCH WASTE TD PRN (17:58)
[2017-01-15] MEDS ORDERED: fentaNYL 12mcg/hr PATCH.TD72 TD SCH (17:58)
[2017-01-15] MEDS ORDERED: SIMETHICONE 80 MG TAB.CHEW (FP) PO ONE (18:00)
[2017-01-15] MEDS ORDERED: POTASSIUM CHLORIDE TABS 20 MEQ TABLET.ER (FP) PO ONE (18:00)
--- NOTE | 2017-01-15 21:01 | PN ---
Progress Note, Physician History of Present Illness: Continues on IV Zosyn and IV Levaquin for E Coli Bacteremia. Denies shaking chills, N/V. On Fentanyl patch for abdominal pain - Current Medication List Current Medications: Active Medications Docusate Sodium (Colace -) 100 mg PO BID PRN PRN Reason: CONSTIPATION Fentanyl (Duragesic 12mcg Patch -) 1 patch TD Q72H [facility] Last Admin: 01/15/17 18:14 Dose: 1 patch Piperacillin Sod/Tazobactam (Sod 4.5 gm/ Dextrose) 100 mls @ 200 mls/hr IVPB Q8H-IV [facility] Last Admin: 01/15/17 17:33 Dose: 200 mls/hr Levofloxacin (Levaquin 500 Mg Premixed Ivpb -) 500 mg in 100 mls @ 100 mls/hr IVPB DAILY@0800 [facility] Last Admin: 01/15/17 08:08 Dose: 100 mls/hr Lisinopril (Prinivil) 10 mg PO BID [facility] Last Admin: 01/15/17 09:53 Dose: 10 mg Miscellaneous (Duragesic Patch Waste) 1 each TD PRN PRN Last Admin: 01/15/17 18:21 Dose: 1 each Rivaroxaban (Xarelto -) 20 mg PO DAILY@1800 [facility] Last Admin: 01/15/17 17:33 Dose: 20 mg Tamsulosin HCl (Flomax -) 0.4 mg PO HS [facility] Last Admin: 01/14/17 21:14 Dose: 0.4 mg - Objective Vital Signs: Vital Signs Temperature 98.2 F 01/15/17 19:00 Pulse Rate 85 01/15/17 19:00 Respiratory Rate 18 01/15/17 19:00 Blood Pressure 137/89 01/15/17 19:00 O2 Sat by Pulse Oximetry (%) 97 01/15/17 09:00 Constitutional: Yes: No Distress, Calm Eyes: Yes: Conjunctiva Clear, EOM Intact HENT: Yes: WNL Neck: Yes: Supple Cardiovascular: Yes: Regular Rate and Rhythm, S1, S2 Respiratory: Yes: Regular, CTA Bilaterally Gastrointestinal: Yes: Normal Bowel Sounds, Soft Genitourinary: Yes: WNL Musculoskeletal: Yes: WNL Extremities: Yes: WNL Edema: No Peripheral Pulses WNL: Yes Integumentary: Yes: WNL Neurological: Yes: Alert, Oriented, Cran Nerves II-XII Intact ...Motor Strength: WNL Psychiatric: Yes: Alert, Oriented Labs: CBC, BMP 01/15/17 13:25 01/15/17 13:25 - ....Imaging Ultrasound: Report Reviewed Problem List - Problems (1) Bacteremia Assessment/Plan: Remains afebrile on IV Levaquin and IV Zosyn Code(s): R78.81 - BACTEREMIA (2) Adenocarcinoma of pancreas Code(s): C25.9 - MALIGNANT NEOPLASM OF PANCREAS, UNSPECIFIED (3) HTN (hypertension) Code(s): I10 - ESSENTIAL (PRIMARY) HYPERTENSION Qualifiers: Hypertension type: secondary to endocrine disorders Qualified Code(s): I15.2 - Hypertension secondary to endocrine disorders (4) Benign prostate hyperplasia Code(s): N40.0 - BENIGN PROSTATIC HYPERPLASIA WITHOUT LOWER URINRY TRACT SYMP (5) Abnormal LFTs Assessment/Plan: LFT'S cotinue to rise with Bili now at 5.7,(was 4.4 on admission) US Liver shows slight dilattion of CBD Code(s): R79.89 - OTHER SPECIFIED ABNORMAL FINDINGS OF BLOOD CHEMISTRY Assessment/Plan Continue IV antibiotics with Levaquin and Zosyn. To be transferred to [facility] for further management when bed available.
[2017-01-15] MEDS: TAMSULOSIN HCL 0.4 MG CAP.ER.24H (FP) PO SCH (21:08)
[2017-01-16] MEDS: PIPERACILLIN/TAZOB 4.5 GM 4.5 GM in DEXTROSE 5%-WATER - 100 ML IVPB SCH ×3 (02:06→18:13)
[2017-01-16] MEDS ORDERED: PT OWN MED DRAWER 7, Y5N ONE (09:06)
[2017-01-16] MEDS: LEVOFLOXACIN 500 MG IVPB 500 MG/100 ML BAG IVPB SCH (09:38)
[2017-01-16] MEDS: LISINOPRIL 10 MG TABLET (FP) PO SCH (09:39)
[2017-01-16 12:55] LABS: ANION GAP 9 (8-16); CALCIUM 9.2 mg/dL (8.5-10.1); CO2 29 mmol/L (21-32); CREATININE 0.7 mg/dL (0.7-1.3); GLUCOSE,RANDOM 119 mg/dL (74-106); SGOT/AST 152 U/L (15-37); SGPT/ALT 172 U/L (12-78); TOT PROT 6.1 g/dl (6.4-8.2)
[2017-01-16 12:56] LABS: ALK PHOS 842 U/L (45-117)
--- NOTE | 2017-01-16 15:45 | PN ---
Progress Note, Physician History of Present Illness: Awake, alert c/o epigastric abdominal pain No N/V No c/o fever/ chills Afebrile WBC WNL BC ) no growth Urine c/s (-) LFTs trending upward - Current Medication List Current Medications: Active Medications Docusate Sodium (Colace -) 100 mg PO BID PRN PRN Reason: CONSTIPATION Fentanyl (Duragesic 12mcg Patch -) 1 patch TD Q72H [facility] Last Admin: 01/15/17 18:14 Dose: 1 patch Piperacillin Sod/Tazobactam (Sod 4.5 gm/ Dextrose) 100 mls @ 200 mls/hr IVPB Q8H-IV [facility] Last Admin: 01/16/17 09:38 Dose: 200 mls/hr Levofloxacin (Levaquin 500 Mg Premixed Ivpb -) 500 mg in 100 mls @ 100 mls/hr IVPB DAILY@0800 [facility] Last Admin: 01/16/17 09:38 Dose: 100 mls/hr Lisinopril (Prinivil) 10 mg PO BID [facility] Last Admin: 01/16/17 09:39 Dose: 10 mg Miscellaneous (Duragesic Patch Waste) 1 each TD PRN PRN Last Admin: 01/15/17 18:21 Dose: 1 each Rivaroxaban (Xarelto -) 20 mg PO DAILY@1800 [facility] Last Admin: 01/15/17 17:33 Dose: 20 mg Tamsulosin HCl (Flomax -) 0.4 mg PO HS [facility] Last Admin: 01/15/17 21:08 Dose: 0.4 mg - Objective Vital Signs: Vital Signs Temperature 98.6 F 01/15/17 21:07 Pulse Rate 87 01/16/17 10:00 Respiratory Rate 18 01/16/17 10:00 Blood Pressure 146/88 01/16/17 10:00 O2 Sat by Pulse Oximetry (%) 97 01/15/17 21:00 Constitutional: Yes: No Distress Eyes: Yes: Conjunctiva Clear Cardiovascular: Yes: Regular Rate and Rhythm, S1, S2 Respiratory: Yes: CTA Bilaterally Gastrointestinal: Yes: Normal Bowel Sounds, Soft, Other (mild epigastric tenderness) Edema: No Labs: CBC, BMP 01/15/17 13:25 01/16/17 11:55 Assessment/Plan Recurrent gram negative bacteremia probable biliary tract focus Pancreatic ca S/P biliary stent Continue zosyn For transfer to [facility] [place]
[2017-01-16 15:56] VITALS: BP 140/96; PULSE 85; TEMP 98.4
[2017-01-16] MEDS: RIVAROXABAN 20 MG TABLET PO SCH (18:13)
--- NOTE | 2017-01-16 19:56 | PN ---
GI Progress Note Subjective: Patient with mild abdominal discomfort this evening. Otherwise well - Objective Vital Signs: Vital Signs Temperature 98.4 F 01/16/17 15:54 Pulse Rate 85 01/16/17 15:54 Respiratory Rate 18 01/16/17 15:54 Blood Pressure 140/96 01/16/17 15:54 O2 Sat by Pulse Oximetry (%) 97 01/16/17 09:00 Constitutional: Well Nourished, Anxious, Mild Distress Cardiovascular: Yes: Regular Rate and Rhythm Respiratory: Yes: CTA Bilaterally Gastrointestinal Inspection: Yes: WNL ...Auscultate: Yes: Normoactive Bowel Sounds ...Palpate: Yes: Soft. No: Tenderness Integumentary: Yes: Jaundice Neurological: Yes: WNL Labs: CBC, BMP 01/15/17 13:25 01/16/17 11:55 Hepatic Panel Total Bilirubin 7.0 mg/dL (0.2-1.0) H D 01/16/17 11:55 AST 152 U/L (15-37) H 01/16/17 11:55 ALT 172 U/L (12-78) H 01/16/17 11:55 Alkaline Phosphatase 842 U/L (45-117) H 01/16/17 11:55 Albumin 3.0 g/dl (3.4-5.0) L 01/16/17 11:55 - ....Imaging Ultrasound: Report Reviewed (Mildly dilated intra and extra hepatic ducts) Assessment/Plan Attempted to transfer patient to [facility] but transfer process onerous and could take "days" due to their unnecessarily complicated process. As patient is at this time clinically well, advised to go to their ER in the city and get admitted through the ER for revision/replacement of non-draining stent. Will discharge now with explicit instructions.
== END 2017-01-16 20:25 | disposition home or self-care (01) | DRG 871 ==
LOC: JER 11:02 → JERBED 14:18 → J5S 16:56
PROVIDERS: ADMIT Internal Medicine Hematology & Oncology; ATTEND Internal Medicine Hematology & Oncology
DX: R78.81 Bacteremia (principal); K83.1 Obstruction of bile duct; C25.9 Malignant neoplasm of pancreas, unspecified; I10 Essential (primary) hypertension; B96.20 Unspecified Escherichia coli [E. coli] as the cause of diseases classified elsewhere; E78.5 Hyperlipidemia, unspecified; K64.8 Other hemorrhoids; R79.89 Other specified abnormal findings of blood chemistry; N40.0 Benign prostatic hyperplasia without lower urinary tract symptoms; Z87.891 Personal history of nicotine dependence
CPT/HCPCS: 36415; 71010-TC; 76705-TC; 80053; 81003; 83605; 83690; 83735; 84100; 85025; 86301; 87040; 87086; 90670; 99282-25